=== PATIENT | male | born 1940 | race Caucasian/White ===

== ENCOUNTER 2017-05-25 17:23 | Emergency (ER) | payer MEDICARE, OTHER ==
[2017-05-25] MEDS ORDERED: Sodium Chloride 0.9% 1,000 ML IV ONE (17:54)
[2017-05-25] MEDS ORDERED: Sodium Chloride 0.9% 10 ML Syringe FLUSH PRN (17:54)
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
[2017-05-25] MEDS ORDERED: Ondansetron 4 MG/2 ML SDV IVPUSH ONE (18:33)
[2017-05-25] MEDS ORDERED: Morphine 10 MG/ML Syringe IVPUSH ONE (18:33)
[2017-05-25 18:55] LABS: CHLORIDE,CL 107 mmol/L (98-107); SODIUM,NA 143 mmol/L (136-145)
[2017-05-25] MEDS ORDERED: Silver Sulfadiazine 1% Crm 400 GM Jar TOP ONE (19:08)
[2017-05-25 20:42] VITALS: BP 158/88
== END 2017-05-25 19:55 | disposition home or self-care (01) ==
LOC: LL.ED 17:23
DX: T23.202A Burn of second degree of left hand, unspecified site, initial encounter (principal); T22.212A Burn of second degree of left forearm, initial encounter; T25.212A Burn of second degree of left ankle, initial encounter; T20.17XA Burn of first degree of neck, initial encounter; E78.00 Pure hypercholesterolemia, unspecified; I10 Essential (primary) hypertension; K21.9 Gastro-esophageal reflux disease without esophagitis; M19.90 Unspecified osteoarthritis, unspecified site; E11.9 Type 2 diabetes mellitus without complications; Z87.891 Personal history of nicotine dependence; Z87.442 Personal history of urinary calculi; Z79.899 Other long term (current) drug therapy; Z79.84 Long term (current) use of oral hypoglycemic drugs; Z79.82 Long term (current) use of aspirin; W40.1XXA Explosion of explosive gases, initial encounter; Y92.59 Other trade areas as the place of occurrence of the external cause
CPT/HCPCS: 16020; 36415; 80053; 85025; 96361; 96374; 96375; 99284; A9270; J2270; J2405; J7030; J7050

== ENCOUNTER 2017-05-27 10:55 | Emergency (ER) | payer MEDICARE, OTHER ==
[2017-05-27] MEDS ORDERED: Sodium Chloride 0.9% 10 ML Syringe FLUSH PRN (11:10)
[2017-05-27 11:37] LABS: CHLORIDE,CL 102 mmol/L (98-107); SODIUM,NA 138 mmol/L (136-145)
[2017-05-27] MEDS ORDERED: Ondansetron 4 MG/2 ML SDV IVPUSH ONE (12:43)
[2017-05-27] MEDS ORDERED: Morphine 10 MG/ML Syringe IVPUSH ONE (12:43)
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
[2017-05-27 20:27] VITALS: BP 130/76
== END 2017-05-27 14:50 ==
LOC: LL.ED 10:55
DX: T22.20XA Burn of second degree of shoulder and upper limb, except wrist and hand, unspecified site, initial encounter (principal); T23.202A Burn of second degree of left hand, unspecified site, initial encounter; T25.212A Burn of second degree of left ankle, initial encounter; T23.102A Burn of first degree of left hand, unspecified site, initial encounter; T25.112A Burn of first degree of left ankle, initial encounter; R53.1 Weakness; R41.0 Disorientation, unspecified; E78.00 Pure hypercholesterolemia, unspecified; I10 Essential (primary) hypertension; K21.9 Gastro-esophageal reflux disease without esophagitis; M19.90 Unspecified osteoarthritis, unspecified site; E11.9 Type 2 diabetes mellitus without complications; Z79.84 Long term (current) use of oral hypoglycemic drugs; Z79.899 Other long term (current) drug therapy; Z79.82 Long term (current) use of aspirin; Z87.442 Personal history of urinary calculi; Z87.891 Personal history of nicotine dependence; X03.0XXA Exposure to flames in controlled fire, not in building or structure, initial encounter; Y92.009 Unspecified place in unspecified non-institutional (private) residence as the place of occurrence of the external cause
CPT/HCPCS: 36415; 70450; 80053; 83605; 85025; 87040; 96374; 96375; 99285; J2270; J2405; J7050; 99284

== ENCOUNTER 2017-06-04 12:16 | Inpatient (IN) | payer OTHER, MEDICARE ==
[2017-06-04] MEDS ORDERED: Aluminum Hydroxide/Magnesium Hydroxide/Simethicone Susp 30 ML Cup PO PRN (16:42)
[2017-06-04] MEDS ORDERED: Cyclobenzaprine 10 MG Tab PO PRN (16:42)
[2017-06-04] MEDS ORDERED: traMADol 50 MG Tab PO PRN (16:42)
[2017-06-04] MEDS ORDERED: Albuterol/Ipratropium 3.0-0.5 MG/3 ML Neb Soln NEB PRN (16:55)
[2017-06-04] MEDS ORDERED: Albuterol 0.083% 2.5 MG/3 ML Neb Soln INH PRN (16:55)
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
[2017-06-04] MEDS: Magnesium Oxide 400 MG Tab PO SCH (17:54)
[2017-06-04] MEDS: Gabapentin 300 MG Cap PO SCH (17:54)
[2017-06-04] MEDS: metFORMIN 500 MG Tab PO SCH (17:54)
[2017-06-04] MEDS: Insulin Aspart 100 Units/ML 3 ML Pen SUBCUT SCH ×2 (17:54→20:44)
[2017-06-04] MEDS: atorvaSTATin 40 MG Tab PO SCH (20:46)
[2017-06-04] MEDS: amLODIPine 5 MG Tab PO SCH (20:46)
[2017-06-04] MEDS: Insulin Detemir 100 Units/ML 3 ML Pen SUBCUT SCH (20:47)
[2017-06-05] MEDS: Magnesium Oxide 400 MG Tab PO SCH ×2 (07:30→17:45)
[2017-06-05] MEDS: Glimepiride 2 MG Tab PO SCH (07:30)
[2017-06-05] MEDS: Gabapentin 300 MG Cap PO SCH ×2 (07:32→17:46)
[2017-06-05] MEDS: Lisinopril 5 MG Tab PO SCH (07:32)
[2017-06-05] MEDS: Citalopram 20 MG Tab PO SCH (07:32)
[2017-06-05] MEDS: Tamsulosin 0.4 MG Cap.ER PO SCH (07:35)
[2017-06-05] MEDS: metFORMIN 500 MG Tab PO SCH ×2 (07:36→17:46)
[2017-06-05] MEDS: Multivitamin Tab PO SCH (07:36)
[2017-06-05] MEDS: Cyanocobalamin (Vitamin B12) 1,000 MCG Tab PO SCH (07:36)
[2017-06-05] MEDS: Omeprazole 20 MG Cap.CR PO SCH (07:36)
[2017-06-05] MEDS: Finasteride 5 MG Tab PO SCH (07:36)
[2017-06-05] MEDS: Aspirin 81 MG Tab.Chew PO SCH (07:36)
[2017-06-05] MEDS: Insulin Aspart 100 Units/ML 3 ML Pen SUBCUT SCH ×4 (07:39→20:47)
[2017-06-05 08:20] LABS: CHLORIDE,CL 106 mmol/L (98-107); SODIUM,NA 141 mmol/L (136-145)
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
[2017-06-05] MEDS: Trospium 20 MG Tab PO SCH (17:46)
[2017-06-05] MEDS: atorvaSTATin 40 MG Tab PO SCH (20:42)
[2017-06-05] MEDS: amLODIPine 5 MG Tab PO SCH (20:42)
[2017-06-05] MEDS: Insulin Detemir 100 Units/ML 3 ML Pen SUBCUT SCH (20:43)
[2017-06-06] MEDS: Citalopram 20 MG Tab PO SCH (07:26)
[2017-06-06] MEDS: Glimepiride 2 MG Tab PO SCH (07:27)
[2017-06-06] MEDS: Magnesium Oxide 400 MG Tab PO SCH ×2 (07:27→17:10)
[2017-06-06] MEDS: Multivitamin Tab PO SCH (07:28)
[2017-06-06] MEDS: Finasteride 5 MG Tab PO SCH (07:28)
[2017-06-06] MEDS: Omeprazole 20 MG Cap.CR PO SCH (07:28)
[2017-06-06] MEDS: Gabapentin 300 MG Cap PO SCH ×2 (07:28→17:10)
[2017-06-06] MEDS: Tamsulosin 0.4 MG Cap.ER PO SCH (07:28)
[2017-06-06] MEDS: metFORMIN 500 MG Tab PO SCH ×2 (07:29→17:09)
[2017-06-06] MEDS: Lisinopril 5 MG Tab PO SCH (07:29)
[2017-06-06] MEDS: Aspirin 81 MG Tab.Chew PO SCH (07:29)
[2017-06-06] MEDS: Cyanocobalamin (Vitamin B12) 1,000 MCG Tab PO SCH (07:30)
[2017-06-06] MEDS: Insulin Aspart 100 Units/ML 3 ML Pen SUBCUT SCH ×4 (07:30→20:56)
[2017-06-06] MEDS: Trospium 20 MG Tab PO SCH ×2 (07:30→17:10)
[2017-06-06] MEDS: Insulin Detemir 100 Units/ML 3 ML Pen SUBCUT SCH (20:54)
[2017-06-06] MEDS: atorvaSTATin 40 MG Tab PO SCH (20:54)
[2017-06-06] MEDS: amLODIPine 5 MG Tab PO SCH (20:54)
[2017-06-07] MEDS: Gabapentin 300 MG Cap PO SCH ×2 (07:42→17:11)
[2017-06-07] MEDS: Omeprazole 20 MG Cap.CR PO SCH (07:42)
[2017-06-07] MEDS: Trospium 20 MG Tab PO SCH ×2 (07:43→17:11)
[2017-06-07] MEDS: Cyanocobalamin (Vitamin B12) 1,000 MCG Tab PO SCH (07:43)
[2017-06-07] MEDS: Multivitamin Tab PO SCH (07:43)
[2017-06-07] MEDS: Magnesium Oxide 400 MG Tab PO SCH ×2 (07:43→17:11)
[2017-06-07] MEDS: Aspirin 81 MG Tab.Chew PO SCH (07:44)
[2017-06-07] MEDS: Tamsulosin 0.4 MG Cap.ER PO SCH (07:45)
[2017-06-07] MEDS: Finasteride 5 MG Tab PO SCH (07:45)
[2017-06-07] MEDS: Lisinopril 5 MG Tab PO SCH (07:46)
[2017-06-07] MEDS: metFORMIN 500 MG Tab PO SCH ×2 (07:47→17:11)
[2017-06-07] MEDS: Citalopram 20 MG Tab PO SCH (07:48)
[2017-06-07] MEDS: Glimepiride 2 MG Tab PO SCH (07:50)
[2017-06-07] MEDS: Insulin Aspart 100 Units/ML 3 ML Pen SUBCUT SCH ×4 (07:51→20:58)
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
[2017-06-07] MEDS: Acetaminophen 325 MG Tab PO PRN (18:06)
[2017-06-07] MEDS: Insulin Detemir 100 Units/ML 3 ML Pen SUBCUT SCH (19:46)
[2017-06-07] MEDS: atorvaSTATin 40 MG Tab PO SCH (19:47)
[2017-06-07] MEDS: amLODIPine 5 MG Tab PO SCH (19:48)
[2017-06-08] MEDS: Trospium 20 MG Tab PO SCH ×2 (07:30→17:13)
[2017-06-08] MEDS: Finasteride 5 MG Tab PO SCH (07:30)
[2017-06-08] MEDS: Glimepiride 2 MG Tab PO SCH (07:30)
[2017-06-08] MEDS: metFORMIN 500 MG Tab PO SCH ×2 (07:30→17:13)
[2017-06-08] MEDS: Gabapentin 300 MG Cap PO SCH ×2 (07:30→17:13)
[2017-06-08] MEDS: Acetaminophen 325 MG Tab PO PRN ×2 (07:31→18:06)
[2017-06-08] MEDS: Cyanocobalamin (Vitamin B12) 1,000 MCG Tab PO SCH (07:32)
[2017-06-08] MEDS: Aspirin 81 MG Tab.Chew PO SCH (07:32)
[2017-06-08] MEDS: Citalopram 20 MG Tab PO SCH (07:32)
[2017-06-08] MEDS: Insulin Aspart 100 Units/ML 3 ML Pen SUBCUT SCH ×4 (07:33→21:18)
[2017-06-08] MEDS: Tamsulosin 0.4 MG Cap.ER PO SCH (07:33)
[2017-06-08] MEDS: Multivitamin Tab PO SCH (07:33)
[2017-06-08] MEDS: Magnesium Oxide 400 MG Tab PO SCH ×2 (07:33→17:13)
[2017-06-08] MEDS: Omeprazole 20 MG Cap.CR PO SCH (07:33)
[2017-06-08] MEDS: Lisinopril 5 MG Tab PO SCH (08:23)
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
[2017-06-08] MEDS: atorvaSTATin 40 MG Tab PO SCH (21:12)
[2017-06-08] MEDS: amLODIPine 5 MG Tab PO SCH (21:13)
[2017-06-08] MEDS: Insulin Detemir 100 Units/ML 3 ML Pen SUBCUT SCH (21:16)
[2017-06-09] MEDS: Insulin Aspart 100 Units/ML 3 ML Pen SUBCUT SCH ×4 (07:47→20:03)
[2017-06-09] MEDS: Aspirin 81 MG Tab.Chew PO SCH (08:04)
[2017-06-09] MEDS: Glimepiride 2 MG Tab PO SCH (08:04)
[2017-06-09] MEDS: Citalopram 20 MG Tab PO SCH (08:04)
[2017-06-09] MEDS: metFORMIN 500 MG Tab PO SCH ×2 (08:04→16:58)
[2017-06-09] MEDS: Tamsulosin 0.4 MG Cap.ER PO SCH (08:04)
[2017-06-09] MEDS: Gabapentin 300 MG Cap PO SCH ×3 (08:05→19:47)
[2017-06-09] MEDS: Finasteride 5 MG Tab PO SCH (08:05)
[2017-06-09] MEDS: Magnesium Oxide 400 MG Tab PO SCH ×2 (08:05→16:58)
[2017-06-09] MEDS: Multivitamin Tab PO SCH (08:05)
[2017-06-09] MEDS: Omeprazole 20 MG Cap.CR PO SCH (08:05)
[2017-06-09] MEDS: Trospium 20 MG Tab PO SCH ×3 (08:05→19:50)
[2017-06-09] MEDS: Lisinopril 5 MG Tab PO SCH (08:05)
[2017-06-09] MEDS: Cyanocobalamin (Vitamin B12) 1,000 MCG Tab PO SCH (08:05)
[2017-06-09 08:41] LABS: CHLORIDE,CL 102 mmol/L (98-107); SODIUM,NA 140 mmol/L (136-145)
[2017-06-09] MEDS: Ondansetron 4 MG Tab.DIS PO PRN ×2 (09:37→19:52)
[2017-06-09] MEDS ORDERED: Promethazine 25 MG Tab PO ONE (13:20)
[2017-06-09] MEDS ORDERED: Magnesium Citrate Solution 296 ML Bottle PO ONE (15:18)
[2017-06-09] MEDS ORDERED: Sodium Chloride 0.9% 10 ML Syringe FLUSH PRN (15:19)
[2017-06-09] MEDS ORDERED: Sodium Chloride 0.9% 500 ML IV ONE (15:20)
--- NOTE | 2017-06-09 15:25 | PCM.PN ---
- General Info Date of Service: 06/09/17 Admission Dx/Problem (Free Text): Admission Diagnosis/Problem Admission Diagnosis/Problem 1. Fatigue 2. Third-degree dempsey Functional Status: Reports: Pain Controlled, Tolerating Diet, Ambulating, Urinating, New Symptoms (nausea and emesis yesterday and today) - Review of Systems General: Denies: Fever, Weakness, Fatigue, Chills HEENT: Reports: No Symptoms Pulmonary: Reports: No Symptoms Cardiovascular: Reports: No Symptoms Gastrointestinal: Reports: Nausea, Vomiting. Denies: Abdominal Pain, Diarrhea, Melena Genitourinary: Reports: No Symptoms Musculoskeletal: Reports: No Symptoms Skin: Reports: No Symptoms Neurological: Reports: No Symptoms (no acute changes) Psychiatric: Reports: No Symptoms - Patient Data Vitals - Most Recent: Last Vital Signs Temp 36.8 C 06/09/17 11:25 Pulse 103 H 06/09/17 11:25 Resp 17 06/09/17 07:27 BP 164/109 H 06/09/17 11:25 Pulse Ox 94 L 06/09/17 11:25 Weight - Most Recent: 81.647 kg I&O - Last 24 Hours: Intake & Output 06/09/17 06/09/17 06/09/17 06:59 14:59 22:59 Output Total 200 300 Balance -200 -300 Lab Results Last 24 Hours: Laboratory Results - last 24 hr 06/08/17 06/08/17 06/09/17 Range/Units 16:59 21:15 08:15 WBC (4.0-10.2) K/uL RBC (4.33-5.41) M/uL Hgb (13.1-16.8) g/dL Hct (39.0-49.0) % MCV (84.0-98.0) fL MCH (28.2-33.3) pg MCHC (31.7-36.0) g/dL RDW (11.2-14.1) % Plt Count (150-350) K/uL Neut % (Auto) (45.0-80.0) % Lymph % (Auto) (10.0-50.0) % [place] % (Auto) (2.0-14.0) % Eos % (Auto) (0.0-5.0) % Baso % (Auto) (0.0-2.0) % Neut # (Auto) (1.40-7.00) K/uL Lymph # (Auto) (0.50-3.50) K/uL [place] # (Auto) (0.00-1.00) K/uL Eos # (Auto) (0.00-0.50) K/uL Baso # (Auto) (0.00-0.20) K/uL Sodium (136-145) mmol/L Potassium (3.5-5.1) mmol/L Chloride (98-107) mmol/L Carbon Dioxide (21.0-32.0) mmol/L BUN (7-18) mg/dL Creatinine (0.51-1.17) mg/dL Est Cr Clr Drug Dosing mL/min Estimated GFR (MDRD) mL/min Glucose (74-106) mg/dL POC Glucose 117 H 171 H (65-110) mg/dl Calcium (8.5-10.1) mg/dL Total Bilirubin (0.2-1.0) mg/dL AST (15-37) U/L ALT (12-78) U/L Alkaline Phosphatase (46-116) IU/L Total Protein (6.4-8.2) g/dL Albumin (3.4-5.0) g/dL Specimen Type Urinvoid Urine Color Yellow Urine Appearance Clear Urine pH 7.5 (5.0-9.0) Ur Specific [place] 1.015 (1.005-1.030) Urine Protein Negative (NEGATIVE) mg/dL Urine Glucose (UA) Negative (NEGATIVE) mg/dL Urine Ketones Negative (NEGATIVE) mg/dL Urine Occult Blood Negative (NEGATIVE) Urine Nitrite Negative (NEGATIVE) Urine Bilirubin Negative (NEGATIVE) Urine Urobilinogen 1.0 (0.2-1.0) E.U./dL Ur Leukocyte Esterase Negative (NEGATIVE) Urine RBC 0-5 /HPF Urine WBC 0-5 /HPF Ur Epithelial Cells Moderate H /LPF Urine Bacteria Few (NONE TO FEW) /HPF 06/09/17 06/09/17 Range/Units 08:20 08:20 WBC 11.7 H (4.0-10.2) K/uL RBC 4.51 (4.33-5.41) M/uL Hgb 11.9 L (13.1-16.8) g/dL Hct 36.9 L (39.0-49.0) % MCV 81.8 L (84.0-98.0) fL MCH 26.4 L (28.2-33.3) pg MCHC 32.2 (31.7-36.0) g/dL RDW 14.3 H (11.2-14.1) % Plt Count 446 H D (150-350) K/uL Neut % (Auto) 86.9 H (45.0-80.0) % Lymph % (Auto) 6.9 L (10.0-50.0) % [place] % (Auto) 5.0 (2.0-14.0) % Eos % (Auto) 0.9 (0.0-5.0) % Baso % (Auto) 0.3 (0.0-2.0) % Neut # (Auto) 10.15 H (1.40-7.00) K/uL Lymph # (Auto) 0.81 (0.50-3.50) K/uL [place] # (Auto) 0.58 (0.00-1.00) K/uL Eos # (Auto) 0.11 (0.00-0.50) K/uL Baso # (Auto) 0.03 (0.00-0.20) K/uL Sodium 140 (136-145) mmol/L Potassium 4.5 (3.5-5.1) mmol/L Chloride 102 (98-107) mmol/L Carbon Dioxide 30.1 (21.0-32.0) mmol/L BUN 10 (7-18) mg/dL Creatinine 0.77 (0.51-1.17) mg/dL Est Cr Clr Drug Dosing 87.12 mL/min Estimated GFR (MDRD) > 60 mL/min Glucose 157 H (74-106) mg/dL POC Glucose (65-110) mg/dl Calcium 9.1 (8.5-10.1) mg/dL Total Bilirubin 0.3 (0.2-1.0) mg/dL AST 21 (15-37) U/L ALT 35 (12-78) U/L Alkaline Phosphatase 109 (46-116) IU/L Total Protein 7.6 (6.4-8.2) g/dL Albumin 3.1 L (3.4-5.0) g/dL Specimen Type Urine Color Urine Appearance Urine pH (5.0-9.0) Ur Specific [place] (1.005-1.030) Urine Protein (NEGATIVE) mg/dL Urine Glucose (UA) (NEGATIVE) mg/dL Urine Ketones (NEGATIVE) mg/dL Urine Occult Blood (NEGATIVE) Urine Nitrite (NEGATIVE) Urine Bilirubin (NEGATIVE) Urine Urobilinogen (0.2-1.0) E.U./dL Ur Leukocyte Esterase (NEGATIVE) Urine RBC /HPF Urine WBC /HPF Ur Epithelial Cells /LPF Urine Bacteria (NONE TO FEW) /HPF Med Orders - Current: Current Medications Acetaminophen (Tylenol) 650 mg PO Q4H PRN PRN Reason: Pain Last Admin: 06/08/17 18:06 Dose: 650 mg Al Hydroxide/Mg Hydroxide (Mag-Al Plus) 30 ml PO Q4H PRN PRN Reason: Heartburn Albuterol (Proventil Neb Soln) 2.5 mg INH Q2H PRN PRN Reason: SHORTNESS OF BREATH Albuterol/Ipratropium (Duoneb 3.0-0.5 Mg/3 Ml) 3 ml NEB Q4HRRT PRN PRN Reason: Dyspnea Amlodipine Besylate (Norvasc) 5 mg PO BEDTIME [facility] Last Admin: 06/08/17 21:13 Dose: 5 mg Aspirin (Aspirin) 81 mg PO DAILY [facility] Last Admin: 06/09/17 08:04 Dose: Not Given Atorvastatin Calcium (Lipitor) 40 mg PO BEDTIME [facility] Last Admin: 06/08/17 21:12 Dose: 40 mg Citalopram Hydrobromide (Celexa) 10 mg PO DAILY [facility] Last Admin: 06/09/17 08:04 Dose: Not Given Cyanocobalamin (Vitamin B12) 1,000 mcg PO DAILY [facility] Last Admin: 06/09/17 08:05 Dose: Not Given Finasteride (Proscar) 5 mg PO DAILY [facility] Last Admin: 06/09/17 08:05 Dose: Not Given Gabapentin (Neurontin) 300 mg PO BID [facility] Last Admin: 06/09/17 08:05 Dose: Not Given Glimepiride (Amaryl) 1 mg PO DAILY [facility] Last Admin: 06/09/17 08:04 Dose: Not Given Sodium Chloride (Normal Saline) 500 mls @ 999 mls/hr IV .BOLUS ONE Stop: 06/09/17 15:50 Sodium Chloride (Normal Saline) 500 mls @ 100 mls/hr IV ASDIRECTED [facility] Insulin Aspart (Novolog) 0 unit SUBCUT ACBED [facility] PRN Reason: Protocol Last Admin: 06/09/17 11:17 Dose: Not Given Insulin Detemir (Levemir) 10 unit SUBCUT BEDTIME [facility] Last Admin: 06/08/17 21:16 Dose: 10 unit Lisinopril (Prinivil) 5 mg PO DAILY [facility] Last Admin: 06/09/17 08:05 Dose: Not Given Magnesium Citrate (Citrate Of Magnesia) 296 ml PO ONETIME ONE Stop: 06/09/17 15:19 Magnesium Oxide (Magnesium Oxide) 400 mg PO BIDMEALS [facility] Last Admin: 06/09/17 08:05 Dose: Not Given Metformin HCl (Glucophage) 1,000 mg PO BIDMEALS [facility] Last Admin: 06/09/17 08:04 Dose: Not Given Multivitamins/Minerals/Vitamin C (Tab-A-Dexter) 1 tab PO DAILY [facility] Last Admin: 06/09/17 08:05 Dose: Not Given Omeprazole (Omeprazole) 20 mg PO ACBRK [facility] Last Admin: 06/09/17 08:05 Dose: Not Given Ondansetron HCl (Zofran Odt) 4 mg PO Q6H PRN PRN Reason: Nausea/Vomiting Last Admin: 06/09/17 09:37 Dose: 4 mg Senna/Docusate Sodium (Senna Plus) 2 tab PO BID PRN PRN Reason: Constipation Last Admin: 06/08/17 07:32 Dose: 2 tab Sodium Chloride (Saline Flush) 10 ml FLUSH ASDIRECTED PRN PRN Reason: Keep Vein Open Tamsulosin HCl (Flomax) 0.4 mg PO DAILY [facility] Last Admin: 06/09/17 08:04 Dose: Not Given Temazepam (Restoril) 15 mg PO BEDTIME PRN PRN Reason: Insomnia Trospium (Sanctura) 20 mg PO BID [facility] Last Admin: 06/09/17 08:05 Dose: Not Given Discontinued Medications Cyclobenzaprine HCl (Flexeril) 10 mg PO TID PRN PRN Reason: back spasm Promethazine HCl (Phenergan) 25 mg PO ONETIME ONE Stop: 06/09/17 13:21 Last Admin: 06/09/17 13:38 Dose: 25 mg Tramadol HCl (Ultram) 50 mg PO Q6H PRN PRN Reason: Pain (moderate 4-6) - Exam General: Alert HEENT: Pupils Equal, Pupils Reactive, EOMI, Mucous Membr. Moist/[place] Neck: Supple Lungs: Clear to Auscultation, Normal Respiratory Effort Cardiovascular: Regular Rate, Regular Rhythm GI/Abdominal Exam: Soft, Non-Tender, No Distention, Other (decreased bowel sounds throughout) Back Exam: No: CVA Tenderness (L), CVA Tenderness (R) Extremities: Normal Inspection, Non-Tender, Normal Capillary Refill Peripheral Pulses: 2+: Radial (L), Radial (R) Skin: Warm, Dry, Intact Neurological: No New Focal Deficit - Problem List & Annotations (1) Right rib fracture SNOMED Code(s): 91724012 Code(s): S22.31XA - FRACTURE OF ONE RIB, RIGHT SIDE, INIT FOR CLOS FX Status: Acute Priority: Low Current Visit: Yes (2) Hypertension SNOMED Code(s): 67787265 Code(s): I10 - ESSENTIAL (PRIMARY) HYPERTENSION Status: Chronic Priority : Medium Current Visit: No Qualifiers: Hypertension type: essential hypertension Qualified Code(s): I10 - Essential (primary) hypertension Annotation/Comment:: Stable by history (3) Dempsey of multiple specified sites Status: Acute Priority: High Current Visit: Yes (4) Generalized weakness SNOMED Code(s): 55834717 Code(s): R53.1 - WEAKNESS Status: Acute Priority: High Current Visit: Yes Onset Date: ~05/25/17 Annotation/Comment:: Initiate PT and OT (5) Confusion SNOMED Code(s): 839837579 Code(s): R41.0 - DISORIENTATION, UNSPECIFIED Status: Chronic Priority: High Current Visit: No Annotation/Comment:: Continued moderate confusion today. Neurological checks with vitals. Note recent normal CT scan of the head and neurological consultation at [facility] as above. Discontinue Ultram and Flexeril secondary to his confusion with no significant pain at this time. UA with culture and sensitivity also to be collected. (6) IDDM (insulin dependent diabetes mellitus) SNOMED Code(s): 89968871 Code(s): E11.9 - TYPE 2 DIABETES MELLITUS WITHOUT COMPLICATIONS; Z79.4 - FDC (CURRENT) USE OF INSULIN Status: Chronic Priority: Medium Current Visit: Yes Annotation/Comment:: Glycosylated hemoglobin in the a.m. Initiate 4 times a day Accu-Cheks with sliding scale for now (7) Dyslipidemia SNOMED Code(s): 114558314 Code(s): E78.5 - HYPERLIPIDEMIA, UNSPECIFIED Status: Chronic Priority: Medium Current Visit: Yes Annotation/Comment:: Stable by history, currently under therapy (8) Coronary artery disease SNOMED Code(s): 27834283 Code(s): I25.10 - ATHSCL HEART DISEASE OF [place] CORONARY ARTERY W/O ANG PCTRS Status: Chronic Priority: Medium Current Visit: Yes Qualifiers: Coronary Disease-Associated Artery/Lesion type: [place] artery [place] vs. transplanted heart: [place] heart Associated angina: without angina Qualified Code(s): I25.10 - Atherosclerotic heart disease of [place] coronary artery without angina pectoris Annotation/Comment:: No recent chest pain or anginal type symptoms with previous history of cardiac arrhythmia and mild valvular disease as above (9) Anxiety and depression SNOMED Code(s): 785293457 Code(s): F41.8 - OTHER SPECIFIED ANXIETY DISORDERS Status: Chronic Priority: Medium Current Visit: Yes Annotation/Comment:: Not currently under therapy. Attempt low-dose Celexa with patient somewhat anxious and depressed today needing some one-on-one care secondary to his confusion as above. Care coordination consultation with possible future fci placement (10) Contusion of chest wall with intact skin SNOMED Code(s): 58798380, 496405460 Code(s): S20.219A - CONTUSION OF UNSPECIFIED FRONT WALL OF [place]OR[place], INIT ENCNTR Status: Acute Priority: Medium Current Visit: Yes Onset Date: ~ (11) Nausea & vomiting SNOMED Code(s): 00943419 Code(s): R11.2 - NAUSEA WITH VOMITING, UNSPECIFIED Status: Acute Priority : Medium Current Visit: Yes Onset Date: 06/08/17 Qualifiers: Vomiting type: unspecified Vomiting Intractability: non-intractable Qualified Code(s): R11.2 - Nausea with vomiting, unspecified Annotation/Comment:: Patient has had several episodes of emesis/nausea yesterday and today. No other specific accompanying symptoms. Mild elevation of WBC today. Noted on Xray to have rather large amounts of stool. Hematocrit also elevated today which reflects probably mild dehydration. Will treat for constipation and given small amount IV fluids and see if this helps resolve the emesis. - Problem List Review Problem List Initiated/Reviewed/Updated: Yes - My Orders Last 24 Hours: My Active Orders 06/09/17 08:16 Ondansetron [Zofran ODT] 4 mg PO Q6H PRN 06/09/17 12:03 Abdomen 2V AP Flat Upright [CR] Routine 06/09/17 15:18 Magnesium Citrate [Citrate of Magnesia] 296 ml PO ONETIME ONE 06/09/17 15:19 Sodium Chloride 0.9% [Saline Flush] 10 ml FLUSH ASDIRECTED PRN Saline Lock Insert [OM.PC] Routine 06/09/17 15:20 Sodium Chloride 0.9% [Normal Saline] 500 ml IV .BOLUS 06/09/17 15:30 Sodium Chloride 0.9% @ 100 MLS/HR(500ml) Sodium Chloride 0.9% [Normal Saline] 500 ml IV ASDIRECTED - Assessment Assessment:: As above - Plan Plan:: As above.
[2017-06-09] MEDS: Sodium Chloride 0.9% 500 ML IV SCH ×2 (15:44→16:43)
[2017-06-09] MEDS ORDERED: Menthol/Methyl Salicylate 85 GM Tube TOP PRN (19:44)
[2017-06-09] MEDS: atorvaSTATin 40 MG Tab PO SCH (19:44)
[2017-06-09] MEDS: Insulin Detemir 100 Units/ML 3 ML Pen SUBCUT SCH (19:45)
[2017-06-09] MEDS: amLODIPine 5 MG Tab PO SCH (19:49)
[2017-06-09] MEDS: Acetaminophen 325 MG Tab PO PRN (19:50)
[2017-06-10] MEDS: Magnesium Oxide 400 MG Tab PO SCH ×2 (07:45→17:08)
[2017-06-10] MEDS: metFORMIN 500 MG Tab PO SCH ×2 (07:45→17:08)
[2017-06-10] MEDS: Omeprazole 20 MG Cap.CR PO SCH (07:46)
[2017-06-10] MEDS: Insulin Aspart 100 Units/ML 3 ML Pen SUBCUT SCH ×4 (07:46→20:01)
[2017-06-10] MEDS: Citalopram 20 MG Tab PO SCH (07:47)
[2017-06-10] MEDS: Glimepiride 2 MG Tab PO SCH (07:47)
[2017-06-10] MEDS: Aspirin 81 MG Tab.Chew PO SCH (07:47)
[2017-06-10] MEDS: Tamsulosin 0.4 MG Cap.ER PO SCH (07:48)
[2017-06-10] MEDS: Gabapentin 300 MG Cap PO SCH ×2 (07:48→17:09)
[2017-06-10] MEDS: Trospium 20 MG Tab PO SCH ×2 (07:49→17:09)
[2017-06-10] MEDS: Finasteride 5 MG Tab PO SCH (07:49)
[2017-06-10] MEDS: Lisinopril 5 MG Tab PO SCH (07:49)
[2017-06-10] MEDS: Cyanocobalamin (Vitamin B12) 1,000 MCG Tab PO SCH (07:49)
[2017-06-10] MEDS: Multivitamin Tab PO SCH (07:50)
[2017-06-10] MEDS ORDERED: Polyethylene Glycol 3350 Powder 17 GM Packet PO ONE (09:39)
[2017-06-10] MEDS ORDERED: Magnesium Citrate Solution 296 ML Bottle PO ONE (09:40)
[2017-06-10] MEDS ORDERED: Sodium Chloride 0.9% 1,000 ML IV SCH (09:42)
[2017-06-10] MEDS: Sodium Chloride 0.9% 1,000 ML IV SCH ×2 (10:38→20:35)
[2017-06-10] MEDS: Insulin Detemir 100 Units/ML 3 ML Pen SUBCUT SCH (19:51)
[2017-06-10] MEDS: atorvaSTATin 40 MG Tab PO SCH (19:53)
[2017-06-10] MEDS: amLODIPine 5 MG Tab PO SCH (19:53)
[2017-06-11] MEDS: Sodium Chloride 0.9% 1,000 ML IV SCH (07:25)
[2017-06-11] MEDS: metFORMIN 500 MG Tab PO SCH ×2 (07:52→18:16)
[2017-06-11] MEDS: Omeprazole 20 MG Cap.CR PO SCH (07:52)
[2017-06-11] MEDS: Magnesium Oxide 400 MG Tab PO SCH ×2 (07:52→18:16)
[2017-06-11] MEDS: Finasteride 5 MG Tab PO SCH (07:52)
[2017-06-11] MEDS: Glimepiride 2 MG Tab PO SCH (07:53)
[2017-06-11] MEDS: Trospium 20 MG Tab PO SCH ×2 (07:54→18:15)
[2017-06-11] MEDS: Multivitamin Tab PO SCH (07:54)
[2017-06-11] MEDS: Cyanocobalamin (Vitamin B12) 1,000 MCG Tab PO SCH (07:54)
[2017-06-11] MEDS: Citalopram 20 MG Tab PO SCH (07:54)
[2017-06-11] MEDS: Lisinopril 5 MG Tab PO SCH (07:55)
[2017-06-11] MEDS: Tamsulosin 0.4 MG Cap.ER PO SCH (07:56)
[2017-06-11] MEDS: Aspirin 81 MG Tab.Chew PO SCH (07:56)
[2017-06-11] MEDS: Gabapentin 300 MG Cap PO SCH ×2 (07:56→18:15)
[2017-06-11] MEDS: Insulin Aspart 100 Units/ML 3 ML Pen SUBCUT SCH ×4 (07:57→20:38)
[2017-06-11 08:09] LABS: CHLORIDE,CL 109 mmol/L (98-107); SODIUM,NA 144 mmol/L (136-145)
[2017-06-11] MEDS: amLODIPine 5 MG Tab PO SCH (19:17)
[2017-06-11] MEDS: atorvaSTATin 40 MG Tab PO SCH (19:17)
[2017-06-11] MEDS: Insulin Detemir 100 Units/ML 3 ML Pen SUBCUT SCH (19:18)
[2017-06-12] MEDS: Temazepam 15 MG Cap PO PRN ×2 (04:41→21:39)
[2017-06-12] MEDS: Acetaminophen 325 MG Tab PO PRN ×2 (04:41→21:39)
[2017-06-12] MEDS: Insulin Aspart 100 Units/ML 3 ML Pen SUBCUT SCH ×4 (07:12→20:13)
[2017-06-12] MEDS: Finasteride 5 MG Tab PO SCH (07:50)
[2017-06-12] MEDS: metFORMIN 500 MG Tab PO SCH ×2 (07:50→17:02)
[2017-06-12] MEDS: Magnesium Oxide 400 MG Tab PO SCH ×2 (07:50→17:02)
[2017-06-12] MEDS: Omeprazole 20 MG Cap.CR PO SCH (07:50)
[2017-06-12] MEDS: Tamsulosin 0.4 MG Cap.ER PO SCH (07:51)
[2017-06-12] MEDS: Glimepiride 2 MG Tab PO SCH (07:51)
[2017-06-12] MEDS: Trospium 20 MG Tab PO SCH ×2 (07:51→17:01)
[2017-06-12] MEDS: Citalopram 20 MG Tab PO SCH (07:52)
[2017-06-12] MEDS: Gabapentin 300 MG Cap PO SCH ×2 (07:52→17:01)
[2017-06-12] MEDS: Cyanocobalamin (Vitamin B12) 1,000 MCG Tab PO SCH (07:53)
[2017-06-12] MEDS: Aspirin 81 MG Tab.Chew PO SCH (07:53)
[2017-06-12] MEDS: Multivitamin Tab PO SCH (07:53)
[2017-06-12] MEDS: Lisinopril 5 MG Tab PO SCH (07:53)
[2017-06-12] MEDS: Insulin Detemir 100 Units/ML 3 ML Pen SUBCUT SCH (19:33)
[2017-06-12] MEDS: atorvaSTATin 40 MG Tab PO SCH (19:34)
[2017-06-12] MEDS: amLODIPine 5 MG Tab PO SCH (19:38)
[2017-06-13] MEDS: Acetaminophen 325 MG Tab PO PRN ×2 (04:37→19:41)
[2017-06-13] MEDS: Aspirin 81 MG Tab.Chew PO SCH (08:33)
[2017-06-13] MEDS: Trospium 20 MG Tab PO SCH ×2 (08:33→17:12)
[2017-06-13] MEDS: metFORMIN 500 MG Tab PO SCH ×2 (08:33→17:13)
[2017-06-13] MEDS: Finasteride 5 MG Tab PO SCH (08:33)
[2017-06-13] MEDS: Glimepiride 2 MG Tab PO SCH (08:33)
[2017-06-13] MEDS: Omeprazole 20 MG Cap.CR PO SCH (08:33)
[2017-06-13] MEDS: Tamsulosin 0.4 MG Cap.ER PO SCH (08:33)
[2017-06-13] MEDS: Gabapentin 300 MG Cap PO SCH ×2 (08:34→17:14)
[2017-06-13] MEDS: Cyanocobalamin (Vitamin B12) 1,000 MCG Tab PO SCH (08:34)
[2017-06-13] MEDS: Citalopram 20 MG Tab PO SCH (08:34)
[2017-06-13] MEDS: Lisinopril 5 MG Tab PO SCH (08:34)
[2017-06-13] MEDS: Multivitamin Tab PO SCH (08:34)
[2017-06-13] MEDS: Magnesium Oxide 400 MG Tab PO SCH ×2 (08:34→17:14)
[2017-06-13] MEDS: Insulin Aspart 100 Units/ML 3 ML Pen SUBCUT SCH ×4 (08:35→20:22)
[2017-06-13] MEDS: atorvaSTATin 40 MG Tab PO SCH (19:40)
[2017-06-13] MEDS: Insulin Detemir 100 Units/ML 3 ML Pen SUBCUT SCH (19:40)
[2017-06-13] MEDS: amLODIPine 5 MG Tab PO SCH (19:41)
[2017-06-13] MEDS: Temazepam 15 MG Cap PO PRN (19:42)
[2017-06-14] MEDS: metFORMIN 500 MG Tab PO SCH ×2 (08:43→17:43)
[2017-06-14] MEDS: Omeprazole 20 MG Cap.CR PO SCH (08:44)
[2017-06-14] MEDS: Magnesium Oxide 400 MG Tab PO SCH ×2 (08:44→17:44)
[2017-06-14] MEDS: Glimepiride 2 MG Tab PO SCH (08:46)
[2017-06-14] MEDS: Aspirin 81 MG Tab.Chew PO SCH (08:48)
[2017-06-14] MEDS: Tamsulosin 0.4 MG Cap.ER PO SCH (08:49)
[2017-06-14] MEDS: Lisinopril 5 MG Tab PO SCH (08:50)
[2017-06-14] MEDS: Gabapentin 300 MG Cap PO SCH ×2 (08:50→17:45)
[2017-06-14] MEDS: Trospium 20 MG Tab PO SCH ×2 (08:52→17:45)
[2017-06-14] MEDS: Finasteride 5 MG Tab PO SCH (08:52)
[2017-06-14] MEDS: Cyanocobalamin (Vitamin B12) 1,000 MCG Tab PO SCH (08:53)
[2017-06-14] MEDS: Multivitamin Tab PO SCH (08:53)
[2017-06-14] MEDS: Citalopram 20 MG Tab PO SCH (08:56)
[2017-06-14] MEDS: Insulin Aspart 100 Units/ML 3 ML Pen SUBCUT SCH ×4 (09:02→20:08)
[2017-06-14] MEDS: Insulin Detemir 100 Units/ML 3 ML Pen SUBCUT SCH (20:08)
[2017-06-14] MEDS: atorvaSTATin 40 MG Tab PO SCH (20:09)
[2017-06-14] MEDS: Acetaminophen 325 MG Tab PO PRN (20:09)
[2017-06-14] MEDS: Temazepam 15 MG Cap PO PRN (20:09)
[2017-06-14] MEDS: amLODIPine 5 MG Tab PO SCH (20:10)
[2017-06-15] MEDS: Insulin Aspart 100 Units/ML 3 ML Pen SUBCUT SCH ×4 (07:48→19:59)
[2017-06-15] MEDS: metFORMIN 500 MG Tab PO SCH ×2 (07:49→17:25)
[2017-06-15] MEDS: Magnesium Oxide 400 MG Tab PO SCH ×2 (07:49→17:25)
[2017-06-15] MEDS: Trospium 20 MG Tab PO SCH ×2 (07:50→17:25)
[2017-06-15] MEDS: Lisinopril 5 MG Tab PO SCH (07:50)
[2017-06-15] MEDS: Aspirin 81 MG Tab.Chew PO SCH (07:50)
[2017-06-15] MEDS: Citalopram 20 MG Tab PO SCH (07:50)
[2017-06-15] MEDS: Omeprazole 20 MG Cap.CR PO SCH (07:50)
[2017-06-15] MEDS: Tamsulosin 0.4 MG Cap.ER PO SCH (07:51)
[2017-06-15] MEDS: Multivitamin Tab PO SCH (07:51)
[2017-06-15] MEDS: Finasteride 5 MG Tab PO SCH (07:52)
[2017-06-15] MEDS: Glimepiride 2 MG Tab PO SCH (07:52)
[2017-06-15] MEDS: Cyanocobalamin (Vitamin B12) 1,000 MCG Tab PO SCH (07:52)
[2017-06-15] MEDS: Gabapentin 300 MG Cap PO SCH ×2 (07:53→17:25)
[2017-06-15] MEDS: Insulin Detemir 100 Units/ML 3 ML Pen SUBCUT SCH (19:57)
[2017-06-15] MEDS: atorvaSTATin 40 MG Tab PO SCH (19:58)
[2017-06-15] MEDS: Temazepam 15 MG Cap PO PRN (19:58)
[2017-06-15] MEDS: amLODIPine 5 MG Tab PO SCH (19:58)
[2017-06-15] MEDS: Acetaminophen 325 MG Tab PO PRN (19:59)
[2017-06-16] MEDS: Multivitamin Tab PO SCH (07:48)
[2017-06-16] MEDS: Insulin Aspart 100 Units/ML 3 ML Pen SUBCUT SCH ×4 (07:48→21:36)
[2017-06-16] MEDS: metFORMIN 500 MG Tab PO SCH ×2 (07:49→17:06)
[2017-06-16] MEDS: Citalopram 20 MG Tab PO SCH (07:49)
[2017-06-16] MEDS: Finasteride 5 MG Tab PO SCH (07:50)
[2017-06-16] MEDS: Gabapentin 300 MG Cap PO SCH ×2 (07:50→17:06)
[2017-06-16] MEDS: Omeprazole 20 MG Cap.CR PO SCH (07:50)
[2017-06-16] MEDS: Trospium 20 MG Tab PO SCH ×2 (07:50→17:06)
[2017-06-16] MEDS: Aspirin 81 MG Tab.Chew PO SCH (07:50)
[2017-06-16] MEDS: Magnesium Oxide 400 MG Tab PO SCH ×2 (07:50→17:06)
[2017-06-16] MEDS: Cyanocobalamin (Vitamin B12) 1,000 MCG Tab PO SCH (07:51)
[2017-06-16] MEDS: Glimepiride 2 MG Tab PO SCH (07:51)
[2017-06-16] MEDS: Lisinopril 5 MG Tab PO SCH (07:51)
[2017-06-16] MEDS: Tamsulosin 0.4 MG Cap.ER PO SCH (07:51)
[2017-06-16] MEDS: Insulin Detemir 100 Units/ML 3 ML Pen SUBCUT SCH (21:34)
[2017-06-16] MEDS: amLODIPine 5 MG Tab PO SCH (21:35)
[2017-06-16] MEDS: atorvaSTATin 40 MG Tab PO SCH (21:35)
[2017-06-16] MEDS: Acetaminophen 325 MG Tab PO PRN (21:36)
[2017-06-16] MEDS: Temazepam 15 MG Cap PO PRN (21:37)
[2017-06-17] MEDS: Cyanocobalamin (Vitamin B12) 1,000 MCG Tab PO SCH (07:52)
[2017-06-17] MEDS: Finasteride 5 MG Tab PO SCH (07:52)
[2017-06-17] MEDS: Insulin Aspart 100 Units/ML 3 ML Pen SUBCUT SCH ×4 (07:52→21:15)
[2017-06-17] MEDS: metFORMIN 500 MG Tab PO SCH ×2 (07:52→17:13)
[2017-06-17] MEDS: Acetaminophen 325 MG Tab PO PRN ×2 (07:53→21:14)
[2017-06-17] MEDS: Lisinopril 5 MG Tab PO SCH (07:53)
[2017-06-17] MEDS: Magnesium Oxide 400 MG Tab PO SCH ×2 (07:54→17:14)
[2017-06-17] MEDS: Trospium 20 MG Tab PO SCH ×2 (07:54→17:14)
[2017-06-17] MEDS: Glimepiride 2 MG Tab PO SCH (07:54)
[2017-06-17] MEDS: Multivitamin Tab PO SCH (07:54)
[2017-06-17] MEDS: Aspirin 81 MG Tab.Chew PO SCH (07:54)
[2017-06-17] MEDS: Omeprazole 20 MG Cap.CR PO SCH (07:54)
[2017-06-17] MEDS: Citalopram 20 MG Tab PO SCH (07:54)
[2017-06-17] MEDS: Tamsulosin 0.4 MG Cap.ER PO SCH (07:54)
[2017-06-17] MEDS: Gabapentin 300 MG Cap PO SCH ×2 (07:54→17:13)
[2017-06-17] MEDS ORDERED: Hydrocortisone 1% Crm 1.5 GM Packet TOP PRN (14:40)
[2017-06-17] MEDS: Insulin Detemir 100 Units/ML 3 ML Pen SUBCUT SCH (21:13)
[2017-06-17] MEDS: Temazepam 15 MG Cap PO PRN (21:14)
[2017-06-17] MEDS: atorvaSTATin 40 MG Tab PO SCH (21:14)
[2017-06-17] MEDS: amLODIPine 5 MG Tab PO SCH (21:14)
[2017-06-18] MEDS: Insulin Aspart 100 Units/ML 3 ML Pen SUBCUT SCH ×2 (07:23→11:06)
[2017-06-18] MEDS: Magnesium Oxide 400 MG Tab PO SCH (07:24)
[2017-06-18] MEDS: Glimepiride 2 MG Tab PO SCH (07:24)
[2017-06-18] MEDS: metFORMIN 500 MG Tab PO SCH (07:25)
[2017-06-18] MEDS: Cyanocobalamin (Vitamin B12) 1,000 MCG Tab PO SCH (07:25)
[2017-06-18] MEDS: Trospium 20 MG Tab PO SCH (07:25)
[2017-06-18] MEDS: Citalopram 20 MG Tab PO SCH (07:25)
[2017-06-18] MEDS: Multivitamin Tab PO SCH (07:26)
[2017-06-18] MEDS: Finasteride 5 MG Tab PO SCH (07:26)
[2017-06-18] MEDS: Omeprazole 20 MG Cap.CR PO SCH (07:26)
[2017-06-18] MEDS: Lisinopril 5 MG Tab PO SCH (07:26)
[2017-06-18] MEDS: Tamsulosin 0.4 MG Cap.ER PO SCH (07:26)
[2017-06-18] MEDS: Aspirin 81 MG Tab.Chew PO SCH (07:27)
[2017-06-18] MEDS: Gabapentin 300 MG Cap PO SCH (07:27)
[2017-06-18 07:28] VITALS: BP 104/68
--- NOTE | 2017-06-19 11:00 | PCM.DCSUM1 ---
Discharge Summary - Hospital Course Free Text/Narrative:: Janki is a 76-year-old gentleman who was admitted with dempsey to the left forearm and hand and left foot at this time the dempsey have been healing nicely and the patient has been getting physical therapy and occupational therapy and has improved to the point where we could discharge him home - Discharge Data Discharge Date: 06/18/17 Discharge Disposition: Home, Self-Care 01 Condition: Good - Discharge Diagnosis/Problem(s) (1) Dempsey of multiple specified sites Status: Acute Priority: High (2) Generalized weakness SNOMED Code(s): 06209670 ICD Code: R53.1 - WEAKNESS Status: Acute Priority: High Onset Date: ~ Problem Details: Initiate PT and OT - Patient Summary/Data Consults: Consultations 06/04/17 16:51 OT Evaluation and Treatment [CONS] Routine PT Evaluation and Treatment [CONS] Routine 06/05/17 05:11 Consult to Case Management [CONS] Routine - Patient Instructions Diet: Heart Healthy Diet Activity: As Tolerated Driving: May Drive Today Showering/Bathing: March Shower Wound/Incision Care: Change Dressing Daily Notify Provider of: Fever, Increased Pain - Discharge Plan Prescriptions/Med Rec: Citalopram [Celexa] 10 mg PO DAILY #30 tablet Home Medications: Home Meds Cyanocobalamin (Vitamin B-12) [Vitamin B-12] 1,000 mcg PO DAILY 07/23/15 [ History] Cyclobenzaprine [Flexeril] 10 mg PO TID PRN 07/23/15 [History] Finasteride [Proscar] 5 mg PO DAILY 07/23/15 [History] Gabapentin [Neurontin] 300 mg PO BID 07/23/15 [History] Lisinopril [Prinivil] 5 mg PO DAILY 07/23/15 [History] Multivitamin [Multi-Day Vitamins] 1 tab PO DAILY 07/23/15 [History] Omeprazole 20 mg PO DAILY 07/23/15 [History] SitaGLIPtin [Januvia] 100 mg PO DAILY 07/23/15 [History] Solifenacin [Vesicare] 5 mg PO DAILY 07/23/15 [History] Tamsulosin [Flomax] 0.4 mg PO DAILY 07/23/15 [History] amLODIPine [Norvasc] 5 mg PO BEDTIME 07/23/15 [History] atorvaSTATin [Lipitor] 40 mg PO BEDTIME 07/23/15 [History] metFORMIN [Glucophage] 1,000 mg PO BIDMEALS 07/23/15 [History] Aspirin [Kimberly Chewable Aspirin] 81 mg PO DAILY 05/25/17 [History] Acetaminophen 650 mg PO Q4H PRN 06/04/17 [History] Alum Hydrox/Mag Hydrox/Simeth [Mag-Al Plus] 30 ml PO Q4H PRN 06/04/17 [History] Docusate Sodium/Sennosides [Senna Plus] 2 tab PO BID PRN 06/04/17 [History] Glimepiride 1 mg PO DAILY 06/04/17 [History] Insulin Detemir [Levemir] 10 units SUBCUT BEDTIME 06/04/17 [History] Magnesium Oxide 400 mg PO BIDMEALS 06/04/17 [History] Acetaminophen [Tylenol] 650 mg PO Q6H PRN #100 tablet 06/18/17 [Rx] Citalopram [Celexa] 10 mg PO DAILY #30 tablet 06/18/17 [Rx] Referrals: Ambar Larry NP [Primary Care Provider] - Vikash Ceballos MD [Family Provider] - - General Info Functional Status: Reports: Tolerating Diet, Ambulating - Review of Systems General: Reports: No Symptoms HEENT: Reports: No Symptoms Pulmonary: Reports: No Symptoms Cardiovascular: Reports: No Symptoms Gastrointestinal: Reports: No Symptoms Genitourinary: Reports: No Symptoms Musculoskeletal: Reports: No Symptoms Skin: Reports: Other (Second-degree dempsey to left hand and left foot healing nicely) Neurological: Reports: No Symptoms Psychiatric: Reports: No Symptoms - Patient Data Vitals - Most Recent: Last Vital Signs Temp 97.7 F 06/18/17 08:00 Pulse 91 06/18/17 08:00 Resp 16 06/18/17 08:00 BP 104/68 06/18/17 08:00 Pulse Ox 91 L 06/18/17 08:00 Weight - Most Recent: 178 lb 12.8 oz Lab Results - Last 24 hrs: Laboratory Results - last 24 hr 06/18/17 Range/Units 11:05 POC Glucose 122 H (65-110) mg/dl Med Orders - Current: Current Medications Discontinued Medications Acetaminophen (Tylenol) 650 mg PO Q4H PRN PRN Reason: Pain Last Admin: 06/17/17 21:14 Dose: 650 mg Al Hydroxide/Mg Hydroxide (Mag-Al Plus) 30 ml PO Q4H PRN PRN Reason: Heartburn Albuterol (Proventil Neb Soln) 2.5 mg INH Q2H PRN PRN Reason: SHORTNESS OF BREATH Albuterol/Ipratropium (Duoneb 3.0-0.5 Mg/3 Ml) 3 ml NEB Q4HRRT PRN PRN Reason: Dyspnea Amlodipine Besylate (Norvasc) 5 mg PO BEDTIME [facility] Last Admin: 06/17/17 21:14 Dose: 5 mg Aspirin (Aspirin) 81 mg PO DAILY [facility] Last Admin: 06/18/17 07:27 Dose: 81 mg Atorvastatin Calcium (Lipitor) 40 mg PO BEDTIME [facility] Last Admin: 06/17/17 21:14 Dose: 40 mg Citalopram Hydrobromide (Celexa) 10 mg PO DAILY [facility] Last Admin: 06/18/17 07:25 Dose: 10 mg Cyanocobalamin (Vitamin B12) 1,000 mcg PO DAILY [facility] Last Admin: 06/18/17 07:25 Dose: 1,000 mcg Cyclobenzaprine HCl (Flexeril) 10 mg PO TID PRN PRN Reason: back spasm Finasteride (Proscar) 5 mg PO DAILY [facility] Last Admin: 06/18/17 07:26 Dose: 5 mg Gabapentin (Neurontin) 300 mg PO BID [facility] Last Admin: 06/18/17 07:27 Dose: 300 mg Glimepiride (Amaryl) 1 mg PO DAILY [facility] Last Admin: 06/18/17 07:24 Dose: 1 mg Hydrocortisone (Hydrocortisone 1% Crm) 1.5 gm TOP BID PRN PRN Reason: Itching Stop: 06/20/17 14:41 Last Admin: 06/17/17 14:54 Dose: 1.5 gm Sodium Chloride (Normal Saline) 500 mls @ 999 mls/hr IV .BOLUS ONE Stop: 06/09/17 15:50 Last Admin: 06/09/17 16:13 Dose: 999 mls/hr Sodium Chloride (Normal Saline) 500 mls @ 100 mls/hr IV ASDIRECTED [facility] Last Admin: 06/09/17 16:43 Dose: 100 mls/hr Sodium Chloride (Normal Saline) 1,000 mls @ 100 mls/hr IV ASDIRECTED [facility] Sodium Chloride (Normal Saline) 1,000 mls @ 100 mls/hr IV ASDIRECTED [facility] Last Admin: 06/11/17 07:25 Dose: 100 mls/hr Insulin Aspart (Novolog) 0 unit SUBCUT ACBED [facility] PRN Reason: Protocol Last Admin: 06/18/17 11:06 Dose: Not Given Insulin Detemir (Levemir) 10 unit SUBCUT BEDTIME [facility] Last Admin: 06/17/17 21:13 Dose: 10 unit Lisinopril (Prinivil) 5 mg PO DAILY [facility] Last Admin: 06/18/17 07:26 Dose: 5 mg Magnesium Citrate (Citrate Of Magnesia) 296 ml PO ONETIME ONE Stop: 06/09/17 15:19 Last Admin: 06/09/17 15:27 Dose: 296 ml Magnesium Citrate (Citrate Of Magnesia) 296 ml PO ONETIME ONE Stop: 06/10/17 09:41 Last Admin: 06/10/17 10:20 Dose: 296 ml Magnesium Oxide (Magnesium Oxide) 400 mg PO BIDMEALS [facility] Last Admin: 06/18/17 07:24 Dose: 400 mg Metformin HCl (Glucophage) 1,000 mg PO BIDMEALS [facility] Last Admin: 06/18/17 07:25 Dose: 1,000 mg Methyl Salicylate (Icy Hot Cream) 0 gm TOP QID PRN PRN Reason: Pain Multivitamins/Minerals/Vitamin C (Tab-A-Dexter) 1 tab PO DAILY [facility] Last Admin: 06/18/17 07:26 Dose: 1 tab [facility]) [facility] Last Admin: 06/18/17 07:26 Dose: 20 mg Ondansetron HCl (Zofran Odt) 4 mg PO Q6H PRN PRN Reason: Nausea/Vomiting Last Admin: 06/09/17 19:52 Dose: 4 mg Polyethylene Glycol (Miralax) 17 gm PO ONETIME ONE Stop: 06/10/17 09:40 Last Admin: 06/10/17 10:20 Dose: 17 gm Promethazine HCl (Phenergan) 25 mg PO ONETIME ONE Stop: 06/09/17 13:21 Last Admin: 06/09/17 13:38 Dose: 25 mg Senna/Docusate Sodium (Senna Plus) 2 tab PO BID PRN PRN Reason: Constipation Last Admin: 06/09/17 19:54 Dose: 2 tab Sodium Chloride (Saline Flush) 10 ml FLUSH ASDIRECTED PRN PRN Reason: Keep Vein Open Tamsulosin HCl (Flomax) 0.4 mg PO DAILY [facility] Last Admin: 06/18/17 07:26 Dose: 0.4 mg Temazepam (Restoril) 15 mg PO BEDTIME PRN PRN Reason: Insomnia Last Admin: 06/17/17 21:14 Dose: 15 mg Tramadol HCl (Ultram) 50 mg PO Q6H PRN PRN Reason: Pain (moderate 4-6) Trospium (Sanctura) 20 mg PO BID [facility] Last Admin: 06/18/17 07:25 Dose: 20 mg - Exam General: Reports: Alert, Oriented HEENT: Reports: Pupils Equal Neck: Reports: Supple Lungs: Reports: Clear to Auscultation, Normal Respiratory Effort Cardiovascular: Reports: Regular Rate, Regular Rhythm GI/Abdominal Exam: Normal Bowel Sounds, Soft, Non-Tender, No Organomegaly, No Distention, No Abnormal Bruit, No Mass, Pelvis Stable Back Exam: Reports: Normal Inspection, Full Range of Motion Extremities: Redness, Other (Left hand dempsey healing nicely DC'd dressing changes and will discharge home left foot healing nicely will send home with home health and dressing changes) *Q Meaningful Use (DIS) - VTE *Q VTE Criteria *Q: - Stroke *Q Stroke Criteria *Q: - AMI *Q AMI Criteria *Q:
== END 2017-06-18 12:05 | disposition home or self-care (01) | DRG 948 ==
LOC: LL.MS 15:47
PROVIDERS: ADMIT Family Medicine; ATTEND Family Medicine
DX: R53.1 Weakness (principal); T22.312A Burn of third degree of left forearm, initial encounter; T24.302A Burn of third degree of unspecified site of left lower limb, except ankle and foot, initial encounter; S22.31XA Fracture of one rib, right side, initial encounter for closed fracture; R41.0 Disorientation, unspecified; E11.9 Type 2 diabetes mellitus without complications; E78.5 Hyperlipidemia, unspecified; I25.10 Atherosclerotic heart disease of native coronary artery without angina pectoris; I10 Essential (primary) hypertension; F41.8 Other specified anxiety disorders; X08.8XXA Exposure to other specified smoke, fire and flames, initial encounter; Z79.84 Long term (current) use of oral hypoglycemic drugs; Z79.82 Long term (current) use of aspirin; Z79.4 Long term (current) use of insulin; Z79.899 Other long term (current) drug therapy; E78.00 Pure hypercholesterolemia, unspecified; I73.9 Peripheral vascular disease, unspecified; J44.9 Chronic obstructive pulmonary disease, unspecified; G47.33 Obstructive sleep apnea (adult) (pediatric); K21.9 Gastro-esophageal reflux disease without esophagitis; K59.09 Other constipation; N40.0 Benign prostatic hyperplasia without lower urinary tract symptoms; N39.46 Mixed incontinence; M19.90 Unspecified osteoarthritis, unspecified site; N52.9 Male erectile dysfunction, unspecified; K44.9 Diaphragmatic hernia without obstruction or gangrene; G89.29 Other chronic pain; G30.9 Alzheimer's disease, unspecified; F02.80 Dementia in other diseases classified elsewhere, unspecified severity, without behavioral disturbance, psychotic disturbance, mood disturbance, and anxiety; G62.9 Polyneuropathy, unspecified; F09 Unspecified mental disorder due to known physiological condition; Z87.891 Personal history of nicotine dependence; D64.9 Anemia, unspecified; W18.30XA Fall on same level, unspecified, initial encounter; Y92.231 Patient bathroom in hospital as the place of occurrence of the external cause
CPT/HCPCS: 36415; 71101-RT; 74020; 80048; 80053; 81001; 82962; 83036; 83605; 83735; 84443; 84550; 85025; 87070; 87086; 97110-GO; 97110-GP; 97116-GP; 97140-GO; 97140-GP; 97161-GP; 97165-GO; 97530-GO; 97530-GP; A9270-GY; J1815-GY; J7030; J7040

== ENCOUNTER 2019-06-19 09:54 | Day surgery (SDC) | payer MEDICARE, OTHER ==
[~2019-06-19 09:54] MED LIST: Propofol 200 MG/20 ML SDV ONE
[2019-06-19] MEDS ORDERED: Lactated Ringers 1,000 ML IV SCH (10:00)
[2019-06-19] MEDS ORDERED: Sodium Chloride 0.9% 10 ML Syringe FLUSH PRN (10:00)
[2019-06-19] MEDS ORDERED: Midazolam 1 MG/ML 2 ML SDV ONE ×2 (10:36→10:39)
[2019-06-19] MEDS ORDERED: Lidocaine 2% 5 ML SDV ONE (10:39)
[2019-06-19] MEDS ORDERED: Propofol 200 MG/20 ML SDV ONE (10:39)
--- NOTE | 2019-06-19 10:42 | PCM.PN ---
- General Info Date of Service: 06/19/19 - Review of Systems Systems Review Comment:: 78-year-old male referred by Anthony Chavez for EGD and colonoscopy. He is medically stable to proceed today. He states his symptoms have improved recently but did have profound nausea vomiting and bowel habit changes. I have discussed the proposed colonoscopy wit the patient. Risks such as but not limited to bleeding and GI injury reviewed. He agrees to proceed. His recent history and physical is reviewed and no significant changes are noted. - Patient Data Vitals - Most Recent: Last Vital Signs Temp 98.3 F 06/19/19 10:08 Pulse 51 L 06/19/19 10:08 Resp 18 06/19/19 10:08 BP 144/64 H 06/19/19 10:08 Pulse Ox 97 06/19/19 10:08 Weight - Most Recent: 88.451 kg Lab Results Last 24 Hours: Laboratory Results - last 24 hr 06/19/19 Range/Units 10:20 POC Glucose 115 H (65-110) mg/dl Med Orders - Current: Current Medications Lactated Ringer's (Ringers, Lactated) 1,000 mls @ 125 mls/hr IV ASDIRECTED [facility] Last Admin: 06/19/19 10:26 Dose: 125 mls/hr Sodium Chloride (Saline Flush) 10 ml FLUSH ASDIRECTED PRN PRN Reason: Keep Vein Open Discontinued Medications Midazolam HCl (Versed 1 Mg/Ml) Confirm Administered Dose 2 mg .ROUTE .STK-MED ONE Stop: 06/19/19 10:37 Propofol (Diprivan 20 Ml) Confirm Administered Dose 400 mg .ROUTE .STK-MED ONE Stop: 06/19/19 08:41 - Problem List Review Problem List Initiated/Reviewed/Updated: Yes - My Orders Last 24 Hours: My Active Orders 06/19/19 10:00 Patient Status [ADT] Routine Blood Glucose Check, Bedside [RC] ONETIME Peripheral IV Care [RC] . DIRECTED Verify Patient Consent Obtain [RC] ASDIRECTED Lactated Ringers [Ringers, Lactated] 1,000 ml IV ASDIRECTED Sodium Chloride 0.9% [Saline Flush] 10 ml FLUSH ASDIRECTED PRN Peripheral IV Insertion Adult [OM.PC] Routine - Assessment Assessment:: unexplained vomiting Change in bowel habits - Plan Plan:: EGD and colonoscopy
--- NOTE | 2019-06-19 11:35 | PCM.OPNOTE ---
- General Post-Op/Procedure Note Date of Surgery/Procedure: 06/19/19 Operative Procedure(s): EGD with Biopsy and Colonoscopy Findings: Mioderate reflux esophagitis but upper endoscopy otherwise appears normal Moderate Sigmoid Diverticulosis, colon otherwise normal Pre Op Diagnosis: Vomiting. Change in bowel habits Post-Op Diagnosis: Reflux esophagitis. Sigmoid Diverticulosis Anesthesia Technique: MAC Primary Surgeon: Juan Alvarado Pathology: Biopsies of Duodenum, Gastric Antrum, Distal Esophagus EBL in mLs: 3 Complications: None Condition: Good
[2019-06-19 15:12] VITALS: BP 154/72; PULSE 54
--- NOTE | 2019-06-20 09:16 | OR ---
Date of Procedure: 06/19/2019 PREOPERATIVE DIAGNOSES: Unexplained vomiting, change in bowel habits. POSTOPERATIVE DIAGNOSES: Reflux esophagitis, sigmoid diverticulosis. OPERATIONS PERFORMED: Esophagogastroduodenoscopy with biopsy and colonoscopy. INDICATIONS FOR SURGERY: This 78-year-old male has a recent history of profound unexplained vomiting. This has improved with the use of PPI agent. He also has had some alternating diarrhea and constipation. FINDINGS: On upper endoscopy, the patient does have a moderate degree of inflammation in the distal esophagus, just near the GE junction. This extends approximately 1 to 2 cm into the distal esophagus and is grossly consistent with reflux esophagitis. No stricturing or other ulcers are seen. The gastric mucosa otherwise appears normal without visible signs of inflammation or hyperemia and no ulcerations are noted. The duodenum appears normal to the fourth portion. On colonoscopy, the patient has a moderate degree of sigmoid diverticulosis, but there is no acute inflammation seen, and the colon is otherwise normal. DESCRIPTION OF PROCEDURE: The patient was taken to the operating room. He was given intravenous sedation and attention was first turned to colonoscopy. He was placed in a dorsal lithotomy position. Digital rectal exam was performed showing no rectal masses. The Olympus colonoscope was inserted into the rectum and retroflexed examination of the rectal canal was performed. The scope was then carefully advanced down through the entire length of the colon until the cecum was reached. Cecal acquisition was confirmed by noting the normal internal cecal anatomy including the appendiceal orifice and ileocecal valve. After examining the cecum, the scope was slowly withdrawn sequentially re- examining the colonic segments until the entire colon and rectum had been fully examined. The scope was removed and attention was turned to upper endoscopy. The Olympus gastroscope was advanced into the mouth through a mouthguard. The scope was advanced under direct visualization down through the esophagus, stomach, and into the duodenum, where examination to the fourth portion was performed. Examination of the duodenum was carried out and no abnormalities were seen. Random biopsies of the duodenal mucosa were taken because of the patient's symptoms. The scope was withdrawn back into the stomach where full examination including retroflexed examination of the fundus was performed. Random biopsies of the antrum were taken to rule out H. pylori. The GE junction and esophagus were then examined. Biopsies of the distal esophagus were taken. After the exam had been completed, the scope was removed, and the patient was taken from the operating room in satisfactory condition. ESTIMATED BLOOD LOSS: 3 mL. COMPLICATIONS: None. PROGNOSIS: Good. DIANE Alvarado MD /[id number] cc: Anthony Chavez PA-C
== END 2019-06-19 12:35 | disposition home or self-care (01) ==
LOC: LL.SDS 09:54
PROVIDERS: ATTEND Surgery
DX: K21.0 Gastro-esophageal reflux disease with esophagitis (principal); K57.30 Diverticulosis of large intestine without perforation or abscess without bleeding; K59.00 Constipation, unspecified; I10 Essential (primary) hypertension; I25.10 Atherosclerotic heart disease of native coronary artery without angina pectoris; I44.0 Atrioventricular block, first degree; E11.9 Type 2 diabetes mellitus without complications; E78.5 Hyperlipidemia, unspecified; Z88.5 Allergy status to narcotic agent; Z87.891 Personal history of nicotine dependence; Z79.84 Long term (current) use of oral hypoglycemic drugs; Z79.82 Long term (current) use of aspirin; Z79.899 Other long term (current) drug therapy
CPT/HCPCS: 00813; 43239; 45378; 82962; J2001; J2250; J2704; J7120; 88305

== ENCOUNTER 2020-01-12 11:21 | Emergency (ER) | payer MEDICARE, OTHER ==
[2020-01-12 13:37] VITALS: BP 153/78; PULSE 56
[2020-01-12] MEDS ORDERED: Ciprofloxacin in D5W 400 MG in Premix Bag 1 BAG IV ONE ×2 (13:58)
[2020-01-12] MEDS ORDERED: Sodium Chloride 0.9% 1,000 ML IV SCH (14:00)
--- NOTE | 2020-01-12 14:13 | EDM.PDOC ---
ED HPI GENERAL MEDICAL PROBLEM - General Chief Complaint: General Stated Complaint: weakness Time Seen by Provider: 01/12/20 11:30 Source of Information: Reports: Patient, Family History Limitations: Reports: No Limitations - History of Present Illness INITIAL COMMENTS - FREE TEXT/NARRATIVE: Pt presents with generalized weakness Has been weak for several weeks Pt had knee surgery and was in care facility for rehab last week was seen by ortho for post-op check and was admitted for UTI Was discharged 01/10/[address] [facility] Was on oral Cipro but has not had any antibiotics since the AM of 01/10/20 states RX was called in to closed pharmacy No fever Very weak and lethargic Unable to ambulate Pt states he did not ambulate during recent admit Decreased oral intake No chest pain No cough No N/V/D Onset: Gradual Duration: Week(s):, Getting Worse Location: Reports: Generalized Associated Symptoms: Reports: Confusion, Loss of Appetite, Weakness Generalized Pain Score (Numeric/FACES): 9 - Related Data Allergies Allergy/AdvReac Type Severity Reaction Status Date / Time morphine Allergy Other Verified 01/12/20 11:23 oxycodone Allergy Other Verified 01/12/20 11:23 Home Meds: Home Meds Cyanocobalamin (Vitamin B-12) [Vitamin B-12] 1,000 mcg PO MOWEFR@0800 07/23/15 [ History] Gabapentin [Neurontin] 300 mg PO TID 07/23/15 [History] Lisinopril [Prinivil] 5 mg PO DAILY 07/23/15 [History] SitaGLIPtin [Januvia] 100 mg PO DAILY 07/23/15 [History] amLODIPine [Norvasc] 10 mg PO BEDTIME 07/23/15 [History] atorvaSTATin [Lipitor] 40 mg PO BEDTIME 07/23/15 [History] metFORMIN [Glucophage] 1,000 mg PO BIDMEALS 07/23/15 [History] Glimepiride 1 mg PO DAILY 06/04/17 [History] Aspirin [Halfprin] 81 mg PO DAILY 06/19/19 [History] Baclofen 10 mg PO TID 06/19/19 [History] Cholecalciferol (Vitamin D3) [Vitamin D3] 2,000 unit PO DAILY 06/19/19 [History] Donepezil HCl [Aricept] 1 tab PO BEDTIME 06/19/19 [History] Ferrous Sulfate 325 mg PO SUTUTHSA@0800 06/19/19 [History] Fesoterodine Fumarate [Toviaz] 8 mg PO DAILY 06/19/19 [History] L Acidophil/B Lactis/B Longum [Florajen3] 1 cap PO DAILY 06/19/19 [History] Mirabegron [Myrbetriq] 1 tab PO DAILY 06/19/19 [History] Mirtazapine [Remeron] 15 mg PO BEDTIME 06/19/19 [History] Pantoprazole Sodium [Protonix] 1 tab PO DAILY 06/19/19 [History] Ciprofloxacin HCl [Cipro] 500 mg PO Q12H 01/12/20 [History] Past Medical History HEENT History: Reports: Impaired Vision. 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, disease of tricuspid valve, first degree atrioventricular block, mitral valve disorder, cardiomegaly Respiratory History: Reports: None Other Respiratory History: Mild obstructive sleep apnea with patient long non compliant with his C-PAP therapy Gastrointestinal History: Reports: Diverticulosis, GERD, Hemorrhoids, Other ( See Below) Other Gastrointestinal History: peptic ulcer, umbilical hernia, esophagitis Genitourinary History: Reports: BPH, Urinary Incontinence, Other (See Below) Other Genitourinary History: bladder stone, hematuria, impotence Musculoskeletal History: Reports: Fracture, Osteoarthritis, Other (See Below) Other Musculoskeletal History: degeneration of lumbar intervertebral, spondylolisthesis, postlaminectomy syndrome, rotator cuff sprain Neurological History: Reports: Other (See Below) Other Neuro History: insomnia Psychiatric History: Reports: Anxiety Other Psychiatric History: Chronic insomnia Endocrine/Metabolic History: Reports: Diabetes, Type II Other Endocrine/Metabolic History: Hypomagnesemia Hematologic History: Reports: Anemia, Iron Deficiency Immunologic History: Reports: None Oncologic (Cancer) History: Reports: None Dermatologic History: Reports: Other (See Below). Denies: Eczema, Psoriasis Other Dermatologic History: dry skin on hands, peel off - Infectious Disease History Infectious Disease History: Reports: Chicken Pox - Past Surgical History GI Surgical History: Reports: Colonoscopy, EGD Other Female Surgeries/Procedures: ureteroscopy, cystoscopy, lithotripsy Male Surgical History: Reports: TURP-Transurethral Resection of Prostate, Other (See Below) Musculoskeletal Surgical History: Reports: Shoulder Surgery Other Musculoskeletal Surgeries/Procedures:: cervical discectomy, lumbar fusion , lumbar laminectomyx2, left SI joint injectionx2, left sacral iliac joint injection, left sacral iliac joint fusion, L2-3 DAVID - Past Imaging History Past Imaging History: Reports: MARIPOSA Screen (02/09/09), Barium Enema (09/22/2000), Cardiac Echo (09/22/99), CAT Scan (CT of the head on 05/27/17, CT of the Abdomen and pelvis on 08/22/10 and 11/10/09), MRI (MRI of the right shoulder on 12/25/16, Last MRI of the lumbar region on 01/22/15 with previous evaluations on 09/23/13, 01/04/11 and 05/16/05), PFT (Last on 03/27/06), Sleep Study (Last sleep study on 08/14), Stress Testing (Last Cardiolite stress test on 08/13/08 with ejection fraction of 61% with previous evaluations on 04/05/06 and 10/11/2000, cardiac stress test on 09/23/99), Ultrasound (Pelvic ultrasound on 02/16/16, bilateral renal ultrasound on 02/16/16, Bladder ultrasound on 02/16/12, renal ultrasound on 03/16/11, right upper quadrant ultrasound on 12/01/09 with subsequent right upper quadrant ultrasound with Kinevac on 12/08/09, Bilateral shoulder ultrascan ultrasounds on 08/17/06), Other (See Below) (Flexible sigmoidoscopy on 02/20/2000 ) - History Comment History Comment: Patient is a poor historian Social & Family History - Family History Cardiac: Reports: CAD, Heart Murmur, High Cholesterol, [place], Stent, Other (See Below) Other Cardiac Family History: Father with fatal [place] at age 82, mother with unknown valvular disorder requiring surgery, brother with PTCA 3 in his 40s, hyperlipidemia in brother, hypertension in mother and sister Neurological: Reports: CVA, Other (See Below) Other Neurological Family History: Father with CVA in his 60s, mother with fatal postoperative CVA in her 70s Endocrine/Metabolic: Reports: Diabetes, type II, IDDM, Other (See Below) Other Endocrine/Metabolic Family History: Mother, sister, and brother with IDDM Oncologic: Reports: Breast, Colon, Metastatic, Prostate, Other (See Below) Other Oncologic Family History: 2 Maternal uncles with fatal prostate cancer in his 70s, maternal grandfather with fatal unknown type of cancer in his 80s, sister with fatal breast cancer at age 55, prostate cancer in brother at age 69 brother with colon cancer at age 70 - Caffeine Use Caffeine Use: Reports: Coffee - Living Situation & Occupation Living situation: Reports: (1964, 3 children,), with Family 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) ED ROS GENERAL - Review of Systems Review Of Systems: See Below Constitutional: Reports: No Symptoms Respiratory: Reports: No Symptoms Cardiovascular: Reports: No Symptoms GI/Abdominal: Reports: No Symptoms Musculoskeletal: Reports: No Symptoms Neurological: Reports: Weakness ED EXAM, GENERAL - Physical Exam Exam: See Below General Appearance: Lethargic, Mild Distress Throat/Mouth: Normal Oropharynx Neck: Supple Respiratory/Chest: Decreased Breath Sounds Cardiovascular: Regular Rate, Rhythm GI/Abdominal: Non-Tender Extremities: No Pedal Edema Neurological: No Motor/Sensory Deficits, Slow to Respond, Other (Generalized weakness) Course - Vital Signs Last Recorded V/S: Last Vital Signs Temp 97.3 F 01/12/20 13:36 Pulse 56 L 01/12/20 13:36 Resp 16 01/12/20 13:36 BP 153/78 H 01/12/20 13:36 Pulse Ox 93 L 01/12/20 13:36 - Orders/Labs/Meds Orders: Active Orders 24 hr Category Date Time Status CULTURE BLOOD [BC] Stat Lab 01/12/20 12:03 Received CULTURE BLOOD [BC] Stat Lab 01/12/20 12:10 Received Ciprofloxacin in D5W [Cipro in D5W 400 MG/200 ML] 400 Med 01/12/20 13:58 Active mg Premix Bag 1 bag IV ONETIME Sodium Chloride 0.9% [Normal Saline] 1,000 ml Med 01/12/20 14:00 Active IV ASDIRECTED Blood Culture x2 Reflex Set [OM.PC] Stat Oth 01/12/20 11:53 Ordered Medication Orders Sodium Chloride (Normal Saline) 1,000 mls @ 150 mls/hr IV ASDIRECTED ADIA Ciprofloxacin/Dextrose 400 mg/ (Premix) 200 mls @ 200 mls/hr IV ONETIME ONE Stop: 01/12/20 14:57 Labs: Laboratory Tests 01/12/20 01/12/20 01/12/20 Range/Units 12:03 12:03 12:03 WBC 7.2 (4.0-10.2) K/uL RBC 4.30 L (4.33-5.41) M/uL Hgb 11.9 L (13.1-16.8) g/dL Hct 37.7 L (39.0-49.0) % MCV 87.7 D (84.0-98.0) fL MCH 27.7 L (28.2-33.3) pg MCHC 31.6 L (31.7-36.0) g/dL RDW 14.6 H (11.2-14.1) % Plt Count 235 D (150-350) K/uL Neut % (Auto) 76.3 (45.0-80.0) % Lymph % (Auto) 12.2 (10.0-50.0) % [place] % (Auto) 7.2 (2.0-14.0) % Eos % (Auto) 3.5 (0.0-5.0) % Baso % (Auto) 0.8 (0.0-2.0) % Neut # (Auto) 5.52 (1.40-7.00) K/uL Lymph # (Auto) 0.88 (0.50-3.50) K/uL [place] # (Auto) 0.52 (0.00-1.00) K/uL Eos # (Auto) 0.25 (0.00-0.50) K/uL Baso # (Auto) 0.06 (0.00-0.20) K/uL Sodium 145 (136-145) mmol/L Potassium 4.1 (3.5-5.1) mmol/L Chloride 108 H (98-107) mmol/L Carbon Dioxide 25.6 (21.0-32.0) mmol/L BUN 25 H (7-18) mg/dL Creatinine 1.36 H (0.51-1.17) mg/dL Est Cr Clr Drug Dosing 46.97 mL/min Estimated GFR (MDRD) 51 mL/min Glucose 182 H (74-106) mg/dL Lactic Acid 3.2 H (0.4-2.0) mmol/L Calcium 9.2 (8.5-10.1) mg/dL Total Bilirubin 0.3 (0.2-1.0) mg/dL AST 13 L (15-37) U/L ALT 25 (12-78) U/L Alkaline Phosphatase 111 (46-116) IU/L Total Protein 7.4 (6.4-8.2) g/dL Albumin 3.7 (3.4-5.0) g/dL Meds: Medications Generic Name Dose Route Start Last Admin Trade Name Freq PRN Reason Stop Dose Admin Sodium Chloride 1,000 mls @ 150 mls/hr 01/12/20 14:00 Normal Saline IV ASDIRECTED ADIA Ciprofloxacin/Dextrose 400 mg/ 200 mls @ 200 mls/hr 01/12/20 13:58 Premix IV 01/12/20 14:57 ONETIME ONE - Re-Assessments/Exams Free Text/Narrative Re-Assessment/Exam: 01/12/20 14:11 See lab Pt with elevated lactic acid Pt initially hypotensive Pt given IV NS and IV Cipro in ER Pt and prefer to be re-admitted in [facility] at [facility] D /W Dr Benjamin [facility] Will accept in transfer Departure - Departure Time of Disposition: 15:00 Disposition: DC/Tfer to [facility] 02 Clinical Impression: UTI, Urinary tract infectious disease, Elevated lactic acid level - Discharge Information Referrals: PCP,None [Primary Care Provider] - Sepsis Event Note - Evaluation Sepsis Screening Result: No Definite Risk - Focused Exam Vital Signs: Vital Signs Temp Pulse Resp BP BP Pulse Ox 01/12/20 13:36 97.3 F 56 L 16 153/78 H 93 L 01/12/20 12:35 97.2 F 59 L 15 139/80 96 01/12/20 11:36 91/54 L 01/12/20 11:29 98.1 F 67 16 97/54 L 97 Date Exam was Performed: 01/12/20 Time Exam was Performed: 14:07 - My Orders Last 24 Hours: My Active Orders 01/12/20 11:53 Blood Culture x2 Reflex Set [OM.PC] Stat 01/12/20 12:03 CULTURE BLOOD [BC] Stat 01/12/20 12:10 CULTURE BLOOD [BC] Stat 01/12/20 13:58 Ciprofloxacin in D5W [Cipro in D5W 400 MG/200 ML] 400 mg Premix Bag 1 bag IV ONETIME 01/12/20 14:00 Sodium Chloride 0.9% [Normal Saline] 1,000 ml IV ASDIRECTED - Assessment/Plan Last 24 Hours: My Active Orders 01/12/20 11:53 Blood Culture x2 Reflex Set [OM.PC] Stat 01/12/20 12:03 CULTURE BLOOD [BC] Stat 01/12/20 12:10 CULTURE BLOOD [BC] Stat 01/12/20 13:58 Ciprofloxacin in D5W [Cipro in D5W 400 MG/200 ML] 400 mg Premix Bag 1 bag IV ONETIME 01/12/20 14:00 Sodium Chloride 0.9% [Normal Saline] 1,000 ml IV ASDIRECTED
[2020-01-12] MEDS ORDERED: cefTRIAXone 1 GM Vial IM ONE (14:58)
== END 2020-01-12 15:35 ==
LOC: LL.ED 11:21
DX: N39.0 Urinary tract infection, site not specified (principal); R74.0 Nonspecific elevation of levels of transaminase and lactic acid dehydrogenase [LDH]; E78.00 Pure hypercholesterolemia, unspecified; I10 Essential (primary) hypertension; K21.9 Gastro-esophageal reflux disease without esophagitis; N40.0 Benign prostatic hyperplasia without lower urinary tract symptoms; F41.9 Anxiety disorder, unspecified; E11.9 Type 2 diabetes mellitus without complications; Z88.5 Allergy status to narcotic agent; Z79.82 Long term (current) use of aspirin; Z79.899 Other long term (current) drug therapy; Z79.84 Long term (current) use of oral hypoglycemic drugs
CPT/HCPCS: 36415; 80053; 83605; 85025; 87040; 96372; 99285; J0696; J2001; 99283

== ENCOUNTER 2021-07-26 19:37 | Emergency (ER) | payer MEDICARE, OTHER ==
[2021-07-26 19:48] VITALS: BP 149/64; PULSE 63
[2021-07-26] MEDS ORDERED: Meclizine 25 MG Tab PO ONE (19:51)
[2021-07-26] MEDS ORDERED: Ondansetron 4 MG/2 ML SDV IVPUSH ONE (20:11)
[2021-07-26] MEDS ORDERED: Sodium Chloride 0.9% 500 ML IV SCH (20:15)
[2021-07-26 20:39] LABS: ANION GAP 9.2 meq/L (7-15); CHLORIDE,CL 106 mmol/L (98-107); SODIUM,NA 143 mmol/L (136-145)
--- NOTE | 2021-07-26 21:39 | EDM.PDOC ---
ED HPI GENERAL MEDICAL PROBLEM - General Chief Complaint: General Stated Complaint: Dizziness Nausea vomiting Time Seen by Provider: 07/26/21 19:50 Source of Information: Reports: Patient, Family History Limitations: Reports: No Limitations - History of Present Illness INITIAL COMMENTS - FREE TEXT/NARRATIVE: Patient comes to ER with ongoing issues consisting of vertigo/emesis. Was seen for this in [place] a few weeks back per self report. Had negative head CT at the time as part of the workup. Was told maybe he was 'dehydrated'. They came to the ER tonight wondering if IV fluid might be of help. The vertigo was worse today and he had several episodes of emesis as a result of some episodes. Has not tried meclizine. Does not have anything home for nausea. Pending PT a ppointment for evaluation and treatment of the vertigo. Denies any trauma preceding developing the vertigo. No med changes. No illnesses. No other changes. Head rotation and laying down trigger the vertigo sensation. - Related Data Allergies Allergy/AdvReac Type Severity Reaction Status Date / Time morphine Allergy Other Verified 07/26/21 19:56 oxycodone Allergy Other Verified 07/26/21 19:56 Home Meds: Home Meds Cyanocobalamin (Vitamin B-12) [Vitamin B-12] 1,000 mcg PO MOWEFR@0800 07/23/15 [History] Gabapentin [Neurontin] 300 mg PO TID 07/23/15 [History] Lisinopril [Prinivil] 5 mg PO DAILY 07/23/15 [History] SitaGLIPtin [Januvia] 100 mg PO DAILY 07/23/15 [History] amLODIPine [Norvasc] 10 mg PO BEDTIME 07/23/15 [History] atorvaSTATin [Lipitor] 40 mg PO BEDTIME 07/23/15 [History] metFORMIN [Glucophage] 1,000 mg PO BIDMEALS 07/23/15 [History] Glimepiride 1 mg PO DAILY 06/04/17 [History] Aspirin [Halfprin] 81 mg PO DAILY 06/19/19 [History] Baclofen 10 mg PO TID 06/19/19 [History] Cholecalciferol (Vitamin D3) [Vitamin D3] 2,000 unit PO DAILY 06/19/19 [History] Donepezil HCl [Aricept] 1 tab PO BEDTIME 06/19/19 [History] Ferrous Sulfate 325 mg PO SUTUTHSA@0800 06/19/19 [History] Fesoterodine Fumarate [Toviaz] 8 mg PO DAILY 06/19/19 [History] L Acidophil/B Lactis/B Longum [Florajen3] 1 cap PO DAILY 06/19/19 [History] Mirabegron [Myrbetriq] 1 tab PO DAILY 06/19/19 [History] Mirtazapine [Remeron] 15 mg PO BEDTIME 06/19/19 [History] Pantoprazole Sodium [Protonix] 1 tab PO DAILY 06/19/19 [History] Ciprofloxacin HCl [Cipro] 500 mg PO Q12H 01/12/20 [History] Promethazine [Phenergan] 25 mg PO Q8H PRN #12 tab 07/26/21 [Rx] Past Medical History HEENT History: Reports: Impaired Vision Other HEENT History: wears glasses Cardiovascular History: Reports: Arrhythmia, High Cholesterol, Hypertension, Other (See Below) Other Cardiovascular History: 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, disease of tricuspid valve, first degree atrioventricular block, mitral valve disorder, cardiomegaly Respiratory History: Reports: None Other Respiratory History: Mild obstructive sleep apnea with patient long non compliant with his C-PAP therapy Gastrointestinal History: Reports: Diverticulosis, GERD, Hemorrhoids, Other (See Below) Other Gastrointestinal History: peptic ulcer, umbilical hernia, esophagitis Genitourinary History: Reports: BPH, Urinary Incontinence, Other (See Below) Other Genitourinary History: bladder stone, hematuria, impotence Musculoskeletal History: Reports: Fracture, Osteoarthritis, Other (See Below) Other Musculoskeletal History: degeneration of lumbar intervertebral, spon dylolisthesis, postlaminectomy syndrome, rotator cuff sprain Neurological History: Reports: Other (See Below) Other Neuro History: insomnia Psychiatric History: Reports: Anxiety Other Psychiatric History: Chronic insomnia Endocrine/Metabolic History: Reports: Diabetes, Type II Other Endocrine/Metabolic History: Hypomagnesemia Hematologic History: Reports: Anemia, Iron Deficiency Immunologic History: Reports: None Oncologic (Cancer) History: Reports: None Dermatologic History: Reports: Other (See Below) Other Dermatologic History: dry skin on hands, peel off - Infectious Disease History Infectious Disease History: Reports: Chicken Pox - Past Surgical History GI Surgical History: Reports: Colonoscopy, EGD Other GI Surgeries/Procedures: Last colonoscopy on 08/14/13 with apparent polypectomy, previous EGD and colonoscopy on 07/02/08 and 03/21/04 Male Surgical History: Reports: TURP-Transurethral Resection of Prostate, Other (See Below) Other Male Surgeries/Procedures: TUIP and cystoscopy with lithotripsy and stone removal on 02/26/12, vasectomy in 1976, cystoscopy on 08/17/10, circumcision at age 20 Neurological Surgical History: Reports: C-Spine, Discectomy, Laminectomy, Lumbar Spine, Spinal Fusion Other Neurological Surgeries/Procedures: Cervical discectomy on 01/26/17, SI fusion on 04/05/16, right lumbar laminectomy on 02/19/14 with subsequent L5-S1 spinal fusion on 07/19/15, L2-3 right-sided laminectomy and discectomy on 09/19/05 Musculoskeletal Surgical History: Reports: Shoulder Surgery Other Musculoskeletal Surgeries/Procedures:: cervical discectomy, lumbar fusion, lumbar laminectomyx2, left SI joint injectionx2, left sacral iliac joint injec tion, left sacral iliac joint fusion, L2-3 DAVID - Past Imaging History Past Imaging History: Reports: MARIPOSA Screen (02/09/09), Barium Enema (09/22/2000), Cardiac Echo (09/22/99), CAT Scan (CT of the head on 05/27/17, CT of the Abdomen and pelvis on 08/22/10 and 11/10/09), MRI (MRI of the right shoulder on 12/25/16, Last MRI of the lumbar region on 01/22/15 with previous evaluations on 09/23/13, 01/04/11 and 05/16/05), PFT (Last on 03/27/06), Sleep Study (Last sleep study on 03/14/10), Stress Testing (Last Cardiolite stress test on 08/13/08 with ejection fraction of 61% with previous evaluations on 04/05/06 and 10/11/2000, cardiac stress test on 09/23/99), Ultrasound (Pelvic ultrasound on 02/16/16, bilateral renal ultrasound on 02/16/16, Bladder ultrasound on 02/16/12, renal ultrasound on 03/16/11, right upper quadrant ultrasound on 12/01/09 with subsequent right upper quadrant ultrasound with Kinevac on 12/08/09, Bilateral shoulder ultrascan ultrasounds on 08/17/06), Other (See Below) (Flexible sigmoidoscopy on 02/20/2000) - History Comment History Comment: Patient is a poor historian Social & Family History - Family History Cardiac: Reports: CAD, Heart Murmur, High Cholesterol, [place], Stent, Other (See Below) Other Cardiac Family History: Father with fatal OK at age 82, mother with unknown valvular disorder requiring surgery, brother with PTCA 3 in his 40s, hyperlipidemia in brother, hypertension in mother and sister Neurological: Reports: CVA, Other (See Below) Other Neurological Family History: Father with CVA in his 60s, mother with fatal postoperative CVA in her 70s Endocrine/Metabolic: Reports: Diabetes, type II, IDDM, Other (See Below) Other Endocrine/Metabolic Family History: Mother, sister, and brother with IDDM Oncologic: Reports: Breast, Colon, Metastatic, Prostate, Other (See Below) Other Oncologic Family History: 2 Maternal uncles with fatal prostate cancer in his 70s, maternal grandfather with fatal unknown type of cancer in his 80s, sister with fatal breast cancer at age 55, prostate cancer in brother at age 69 brother with colon cancer at age 70 - Caffeine Use Caffeine Use: Reports: Coffee - Living Situation & Occupation Living situation: Reports: (1964, 3 children,), with Family 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 Denies: Ear Pain Respiratory: Reports: No Symptoms Cardiovascular: Reports: No Symptoms GI/Abdominal: Reports: Nausea, Vomiting. Denies: Abdominal Pain, Constipation, Diarrhea, Hematemesis, Hematochezia : Reports: No Symptoms Musculoskeletal: Reports: Other (no acute changes from baseline) Skin: Reports: No Symptoms Neurological: Reports: Other (No acute changes from baseline) Psychiatric: Reports: No Symptoms ED EXAM, GENERAL - Physical Exam Exam: See Below Exam Limited By: No Limitations General Appearance: Alert, WD/WN, No Apparent Distress Eye Exam: Bilateral Eye: EOMI, PERRL, Other (no obvious nystagmus) Ears: Normal External Exam, Normal Canal, Hearing Grossly Normal, Normal TMs Nose: Normal Inspection Throat/Mouth: Normal Lips, Normal Voice, No Airway Compromise Head: Atraumatic, Normocephalic Neck: Supple, Full Range of Motion Respiratory/Chest: No Respiratory Distress, Lungs Clear, Normal Breath Sounds, No Accessory Muscle Use, Chest Non-Tender Cardiovascular: Regular Rate, Rhythm, No Murmur GI/Abdominal: Soft, Non-Tender, No Distention (Male) Exam: Deferred Rectal (Males) Exam: Deferred Back Exam: Normal Inspection Extremities: Non-Tender, Normal Capillary Refill Neurological: Alert, Oriented, Normal Cognition, No Motor/Sensory Deficits Psychiatric: Normal Affect, Normal Mood Skin Exam: Warm, Dry, Intact, Normal Color Course - Vital Signs Last Recorded V/S: Last Vital Signs Temp 36.6 C 07/26/21 19:47 Pulse 63 07/26/21 19:47 Resp 16 07/26/21 19:47 BP 149/64 H 07/26/21 19:47 Pulse Ox 93 L 07/26/21 19:47 - Orders/Labs/Meds Orders: Active Orders 24 hr Category Date Time Status UA W/MICROSCOPIC [URIN] Stat Lab 07/26/21 20:10 Ordered Labs: Laboratory Tests 07/26/21 07/26/21 Range/Units 20:20 20:20 WBC 5.5 (4.0-10.2) K/uL RBC 4.34 (4.33-5.41) M/uL Hgb 12.4 L D (13.1-16.8) g/dL Hct 37.0 L (39.0-49.0) % MCV 85.3 (84.0-98.0) fL MCH 28.6 (28.2-33.3) pg MCHC 33.5 (31.7-36.0) g/dL RDW 13.4 (11.2-14.1) % Plt Count 214 (150-350) K/uL Neut % (Auto) 66.4 (45.0-80.0) % Lymph % (Auto) 18.8 (10.0-50.0) % [place] % (Auto) 10.8 (2.0-14.0) % Eos % (Auto) 3.1 (0.0-5.0) % Baso % (Auto) 0.9 (0.0-2.0) % Neut # (Auto) 3.68 (1.40-7.00) K/uL Lymph # (Auto) 1.04 (0.50-3.50) K/uL [place] # (Auto) 0.60 (0.00-1.00) K/uL Eos # (Auto) 0.17 (0.00-0.50) K/uL Baso # (Auto) 0.05 (0.00-0.20) K/uL Sodium 143 (136-145) mmol/L Potassium 4.1 (3.5-5.1) mmol/L Chloride 106 (98-107) mmol/L Carbon Dioxide 27.8 (21.0-32.0) mmol/L Anion Gap 9.2 (7-15) meq/L BUN 18 (7-18) mg/dL Creatinine 1.00 (0.51-1.17) mg/dL Est Cr Clr Drug Dosing TNP Estimated GFR (MDRD) > 60 mL/min Glucose 149 H (70-99) mg/dL Calcium 8.8 (8.5-10.1) mg/dL Magnesium 1.6 L (1.8-2.4) mg/dL Total Bilirubin 0.5 (0.2-1.0) mg/dL AST 17 (15-37) U/L ALT 35 (12-78) U/L Alkaline Phosphatase 105 (46-116) IU/L Total Protein 6.8 (6.4-8.2) g/dL Albumin 4.0 (3.4-5.0) g/dL Meds: Medications Discontinued Medications Generic Name Dose Route Start Last Admin Trade Name Silverq PRN Reason Stop Dose Admin Sodium Chloride 500 mls @ 500 mls/hr 07/26/21 20:15 07/26/21 20:24 Normal Saline IV 500 mls/hr .BOLUS ADIA Administration Magnesium Sulfate/Dextrose 1 100 mls @ 100 mls/hr 07/26/21 20:49 gm/ Premix IV 07/26/21 21:48 ONETIME ONE Meclizine HCl 25 mg 07/26/21 19:51 07/26/21 20:24 Meclizine 25 Mg Tab PO 07/26/21 19:52 25 mg ONETIME ONE Administration Ondansetron HCl 4 mg 07/26/21 20:11 07/26/21 20:23 Ondansetron 4 Mg/2 Ml Sdv IVPUSH 07/26/21 20:12 4 mg ONETIME ONE Administration - Re-Assessments/Exams Free Text/Narrative Re-Assessment/Exam: 07/26/21 22:12 CBC/Chem/Mag/UA ordered. 500ml IV fluid/Meclizine/Zofran ordered. Labs overall unremarkable. Mag slightly low but patient did not want to wait an additional hour in the ER to receive replacement therapy. He wanted to go home after IV fluids. Overall he did not say if he felt any significant improvement of the vertigo after the above interventions. Vertigo/treatment approaches discussed. He does have a pending appointment with PT for the vertigo. 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 Follow up with primary provider at end of week encouraged. To follow up otherwise as needed if additional problems/concerns develop. 07/26/21 22:16 Recommended to patient to starting taking his Magnesium twice a day. To get level rechecked in August. Departure - Departure Time of Disposition: 21:39 Disposition: Home, Self-Care 01 Condition: Good Clinical Impression: Vertigo, Hypomagnesemia - Discharge Information *PRESCRIPTION DRUG MONITORING PROGRAM REVIEWED*: Not Applicable *COPY OF PRESCRIPTION DRUG MONITORING REPORT IN PATIENT CARLOS: Not Applicable Prescriptions: Promethazine [Phenergan] 25 mg PO Q8H PRN #12 tab PRN Reason: Nausea Instructions: Vertigo, How to Perform the Clarice Maneuver Referrals: PCP,None [Primary Care Provider] - Forms: ED Department Discharge Additional Instructions: Follow up with PT when you get an appointment situated. Follow up with your own primary provider as needed for ongoing care/concerns. See if Meclizine 25mg every 6 hours helps with the vertigo. You can buy that without a prescription at the pharmacy. 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 If symptoms persist follow up with your clinic Sunday if you can get an appointment. Sepsis Event Note (ED) - Evaluation Sepsis Screening Result: No Definite Risk - Focused Exam Vital Signs: Vital Signs Temp Pulse Resp BP Pulse Ox 07/26/21 19:47 36.6 C 63 16 149/64 H 93 L - My Orders Last 24 Hours: My Active Orders 07/26/21 20:10 UA W/MICROSCOPIC [URIN] Stat - Assessment/Plan Last 24 Hours: My Active Orders 07/26/21 20:10 UA W/MICROSCOPIC [URIN] Stat
== END 2021-07-26 21:50 | disposition home or self-care (01) ==
LOC: LL.ED 19:37
DX: R42 Dizziness and giddiness (principal); E83.42 Hypomagnesemia; E11.9 Type 2 diabetes mellitus without complications; I10 Essential (primary) hypertension; E78.00 Pure hypercholesterolemia, unspecified; K21.9 Gastro-esophageal reflux disease without esophagitis; Z79.84 Long term (current) use of oral hypoglycemic drugs; Z79.82 Long term (current) use of aspirin; Z79.899 Other long term (current) drug therapy; Z88.5 Allergy status to narcotic agent
CPT/HCPCS: 36415; 80053; 81001; 83735; 85025; 96374; 99284; 99284-25; A9270-GY; J2405; J7040

== ENCOUNTER 2021-12-05 10:58 | Emergency (ER) | payer MEDICARE, OTHER ==
[2021-12-05 12:37] LABS: POTASSIUM,POC 4.5 mmol/L (3.5-4.5)
[2021-12-05] MEDS ORDERED: Sodium Chloride 0.9% 10 ML Syringe FLUSH PRN (13:13)
[2021-12-05] MEDS: Sodium Chloride 0.9% 1,000 ML IV ONE (13:50)
[2021-12-05 14:50] VITALS: BP 139/66; PULSE 92
== END 2021-12-05 17:53 | disposition home or self-care (01) ==
LOC: LL.ED 10:58
DX: S70.01XA Contusion of right hip, initial encounter (principal); R26.81 Unsteadiness on feet; E78.00 Pure hypercholesterolemia, unspecified; I10 Essential (primary) hypertension; K21.9 Gastro-esophageal reflux disease without esophagitis; M19.90 Unspecified osteoarthritis, unspecified site; E11.9 Type 2 diabetes mellitus without complications; D50.9 Iron deficiency anemia, unspecified; Z88.5 Allergy status to narcotic agent; Z79.82 Long term (current) use of aspirin; Z79.84 Long term (current) use of oral hypoglycemic drugs; Z79.899 Other long term (current) drug therapy; W18.30XA Fall on same level, unspecified, initial encounter; Y92.009 Unspecified place in unspecified non-institutional (private) residence as the place of occurrence of the external cause
CPT/HCPCS: 36415; 72170; 80047; 81001; 85025; 99283; 99284; J7030

== ENCOUNTER 2022-11-02 17:46 | Inpatient (IN) | payer MEDICARE, OTHER ==
[2022-11-02 18:48] LABS: ANION GAP 13.7 meq/L (7-15); CHLORIDE,CL 99 mmol/L (98-107); ESTIMATED GFR 61 mL/min (>=60); SODIUM,NA 137 mmol/L (136-145)
[2022-11-02] MEDS ORDERED: Calcium Carbonate 500 MG Tab.Chew PO PRN (19:53)
[2022-11-02] MEDS ORDERED: Magnesium Hydroxide 400 MG/5 ML Susp 30 ML Cup PO PRN (19:53)
[2022-11-02] MEDS ORDERED: Acetaminophen 325 MG Tab PO PRN (19:53)
[2022-11-02] MEDS ORDERED: Insulin Lispro Protamine/Lispro 75-25 100 Units/ML 10 ML Vial SUBCUT ONE (19:59)
[2022-11-02] MEDS ORDERED: Glucagon,Human Recombinant 1 MG Vial IM PRN ×2 (19:59→20:08)
[2022-11-02] MEDS ORDERED: 50% Dextrose in Water 50 ML Syringe IVPUSH PRN ×2 (19:59→20:08)
[2022-11-02] MEDS ORDERED: Non-Formulary Medication 1 Each (Dimenhydrinate [Dramamine] 50 MG Tablet) PO PRN (20:02)
[2022-11-02] MEDS ORDERED: Polyethylene Glycol 3350 Powder 17 GM Packet PO PRN (20:02)
[2022-11-02] MEDS ORDERED: Sodium Chloride 0.9% 1,000 ML IV SCH (21:00)
[2022-11-02] MEDS: DULoxetine 30 MG Cap PO SCH (21:31)
[2022-11-03 07:47] LABS: ANION GAP 9.9 meq/L (7-15)
[2022-11-03] MEDS: Insulin Lispro 100 Units/ML 3 ML Vial SUBCUT SCH ×3 (08:28→17:16)
[2022-11-03] MEDS: Metoprolol Tartrate 25 MG Tab PO SCH ×2 (08:29→20:04)
[2022-11-03] MEDS: Cholecalciferol (Vitamin D3) 25 MCG Tab PO SCH (08:29)
[2022-11-03] MEDS: amLODIPine 5 MG Tab PO SCH (08:29)
[2022-11-03] MEDS: Aspirin 81 MG Tab.EC PO SCH (08:30)
[2022-11-03] MEDS: metFORMIN 500 MG Tab PO SCH ×2 (08:30→17:18)
[2022-11-03] MEDS: Cyanocobalamin (Vitamin B12) 1,000 MCG Tab PO SCH (08:30)
[2022-11-03] MEDS: Magnesium Oxide 400 MG Tab PO SCH ×2 (08:30→17:18)
[2022-11-03] MEDS ORDERED: Sodium Chloride 0.9% 1,000 ML IV SCH (16:45)
[2022-11-03] MEDS: Gabapentin 300 MG Cap PO SCH (20:03)
[2022-11-03] MEDS: Donepezil 10 MG Tab PO SCH (20:03)
[2022-11-03] MEDS: Mirtazapine 15 MG Tab PO SCH (20:03)
[2022-11-03] MEDS: atorvaSTATin 40 MG Tab PO SCH (20:04)
[2022-11-03] MEDS: DULoxetine 30 MG Cap PO SCH (20:04)
[2022-11-03] MEDS: Sodium Chloride 0.9% 10 ML Syringe FLUSH SCH (20:04)
[2022-11-03 21:50] LABS: RESPIRATORY SYNCYTIAL VIR NAA NEGATIVE (NEGATIVE)
[2022-11-03 21:52] LABS: CORONAVIRUS COVID-19 NAA POSITIVE (NEGATIVE)
[2022-11-04] MEDS: Insulin Lispro 100 Units/ML 3 ML Vial SUBCUT SCH ×3 (08:23→17:24)
[2022-11-04] MEDS: metFORMIN 500 MG Tab PO SCH ×2 (08:26→17:23)
[2022-11-04] MEDS: Ferrous Sulfate 325 MG Tab PO SCH (08:27)
[2022-11-04] MEDS: Aspirin 81 MG Tab.EC PO SCH (08:28)
[2022-11-04] MEDS: Magnesium Oxide 400 MG Tab PO SCH ×2 (08:28→17:23)
[2022-11-04] MEDS: amLODIPine 5 MG Tab PO SCH (08:29)
[2022-11-04] MEDS: Cholecalciferol (Vitamin D3) 25 MCG Tab PO SCH (08:30)
[2022-11-04] MEDS: Cyanocobalamin (Vitamin B12) 1,000 MCG Tab PO SCH (08:31)
[2022-11-04] MEDS: Sodium Chloride 0.9% 10 ML Syringe FLUSH SCH ×2 (08:32→19:26)
[2022-11-04] MEDS: Metoprolol Tartrate 25 MG Tab PO SCH ×2 (08:42→19:27)
[2022-11-04 08:49] LABS: ANION GAP 8.5 meq/L (7-15)
[2022-11-04] MEDS: atorvaSTATin 40 MG Tab PO SCH (19:26)
[2022-11-04] MEDS: Donepezil 10 MG Tab PO SCH (19:27)
[2022-11-04] MEDS: Gabapentin 300 MG Cap PO SCH (19:27)
[2022-11-04] MEDS: DULoxetine 30 MG Cap PO SCH (19:27)
[2022-11-04] MEDS: Mirtazapine 15 MG Tab PO SCH (19:27)
[2022-11-04] MEDS ORDERED: Non-Formulary Medication 1 Each (Triamcinolone Acetonide 80 GM Tube) TOP SCH (20:02)
[2022-11-05] MEDS: Insulin Lispro 100 Units/ML 3 ML Vial SUBCUT SCH ×3 (08:22→17:11)
[2022-11-05] MEDS: Cholecalciferol (Vitamin D3) 25 MCG Tab PO SCH (08:28)
[2022-11-05] MEDS: Ferrous Sulfate 325 MG Tab PO SCH (08:29)
[2022-11-05] MEDS: Magnesium Oxide 400 MG Tab PO SCH ×2 (08:29→17:24)
[2022-11-05] MEDS: metFORMIN 500 MG Tab PO SCH ×2 (08:30→17:23)
[2022-11-05] MEDS: amLODIPine 5 MG Tab PO SCH (08:30)
[2022-11-05] MEDS: Cyanocobalamin (Vitamin B12) 1,000 MCG Tab PO SCH (08:31)
[2022-11-05] MEDS: Metoprolol Tartrate 25 MG Tab PO SCH (08:31)
[2022-11-05] MEDS: Sodium Chloride 0.9% 10 ML Syringe FLUSH SCH (08:32)
[2022-11-05] MEDS: Aspirin 81 MG Tab.EC PO SCH (08:32)
[2022-11-05 08:33] VITALS: BP 151/73
[2022-11-05 09:06] VITALS: PULSE 58
== END 2022-11-05 18:30 | disposition swing bed (61) | DRG 637 ==
LOC: LL.ED 17:46 → LL.MS 19:30 → OBSVTOIN 19:53
PROVIDERS: ADMIT Family Medicine; ATTEND Family Medicine
DX: E11.65 Type 2 diabetes mellitus with hyperglycemia (principal); U07.1 COVID-19; I10 Essential (primary) hypertension; F03.90 Unspecified dementia, unspecified severity, without behavioral disturbance, psychotic disturbance, mood disturbance, and anxiety; H54.7 Unspecified visual loss; E78.00 Pure hypercholesterolemia, unspecified; G47.33 Obstructive sleep apnea (adult) (pediatric); K21.9 Gastro-esophageal reflux disease without esophagitis; M51.36 Other intervertebral disc degeneration, lumbar region; M43.10 Spondylolisthesis, site unspecified; G47.00 Insomnia, unspecified; F41.9 Anxiety disorder, unspecified; E83.42 Hypomagnesemia; D50.9 Iron deficiency anemia, unspecified; R80.9 Proteinuria, unspecified; W19.XXXA Unspecified fall, initial encounter; R41.0 Disorientation, unspecified; N40.1 Benign prostatic hyperplasia with lower urinary tract symptoms; N39.498 Other specified urinary incontinence; R26.89 Other abnormalities of gait and mobility; N52.9 Male erectile dysfunction, unspecified; Y92.009 Unspecified place in unspecified non-institutional (private) residence as the place of occurrence of the external cause; Z88.5 Allergy status to narcotic agent; Z98.890 Other specified postprocedural states; Z98.1 Arthrodesis status; Z79.84 Long term (current) use of oral hypoglycemic drugs; Z79.899 Other long term (current) drug therapy; Z79.82 Long term (current) use of aspirin; Z87.891 Personal history of nicotine dependence; E86.0 Dehydration
CPT/HCPCS: 0241U; 36415; 80048; 80053; 81001; 82550; 82947; 83605; 85025; 97163; 70450; 71045; 84484; 85610; 99285; A9270-GY; J1815-GY; J3490; J7030

== ENCOUNTER 2022-11-05 09:55 | Inpatient (IN) | payer MEDICARE, OTHER ==
[2022-11-05] MEDS ORDERED: Acetaminophen 325 MG Tab PO PRN (19:47)
[2022-11-05] MEDS ORDERED: Calcium Carbonate 500 MG Tab.Chew PO PRN (19:47)
[2022-11-05] MEDS ORDERED: Non-Formulary Medication 1 Each (Dimenhydrinate [Dramamine] 50 MG Tablet) PO PRN (19:47)
[2022-11-05] MEDS ORDERED: Polyethylene Glycol 3350 Powder 17 GM Packet PO PRN (19:47)
[2022-11-05] MEDS ORDERED: Non-Formulary Medication 1 Each (Dulaglutide [Trulicity] 4.5 MG/0.5 ML Pen.Injctr) SQ SCH (20:00)
[2022-11-05] MEDS: Metoprolol Tartrate 25 MG Tab PO SCH (20:18)
[2022-11-05] MEDS: Donepezil 10 MG Tab PO SCH (20:18)
[2022-11-05] MEDS: Mirtazapine 15 MG Tab PO SCH (20:18)
[2022-11-05] MEDS: atorvaSTATin 40 MG Tab PO SCH (20:18)
[2022-11-05] MEDS: DULoxetine 30 MG Cap PO SCH (20:18)
[2022-11-05] MEDS: Gabapentin 300 MG Cap PO SCH (20:18)
[2022-11-05] MEDS: Triamcinolone Acetonide 0.1% Crm 15 GM Tube TOP SCH (21:05)
[2022-11-05] MEDS ORDERED: LORazepam 0.5 MG Tab PO PRN (23:54)
[2022-11-06] MEDS: Cholecalciferol (Vitamin D3) 25 MCG Tab PO SCH (07:30)
[2022-11-06] MEDS: metFORMIN 500 MG Tab PO SCH ×2 (07:30→17:42)
[2022-11-06] MEDS: Metoprolol Tartrate 25 MG Tab PO SCH ×2 (07:31→19:25)
[2022-11-06] MEDS: Cyanocobalamin (Vitamin B12) 1,000 MCG Tab PO SCH (07:31)
[2022-11-06] MEDS: Magnesium Oxide 400 MG Tab PO SCH ×2 (07:31→17:42)
[2022-11-06] MEDS: amLODIPine 5 MG Tab PO SCH (07:32)
[2022-11-06] MEDS: Aspirin 81 MG Tab.EC PO SCH (07:32)
[2022-11-06] MEDS ORDERED: Meclizine 25 MG Tab PO PRN (14:56)
[2022-11-06] MEDS: Gabapentin 300 MG Cap PO SCH (19:26)
[2022-11-06] MEDS: atorvaSTATin 40 MG Tab PO SCH (19:26)
[2022-11-06] MEDS: Mirtazapine 15 MG Tab PO SCH (19:26)
[2022-11-06] MEDS: DULoxetine 30 MG Cap PO SCH (19:26)
[2022-11-06] MEDS: Donepezil 10 MG Tab PO SCH (19:26)
[2022-11-07] MEDS: metFORMIN 500 MG Tab PO SCH ×2 (09:20→18:16)
[2022-11-07] MEDS: Cholecalciferol (Vitamin D3) 25 MCG Tab PO SCH (09:21)
[2022-11-07] MEDS: Magnesium Oxide 400 MG Tab PO SCH ×2 (09:21→18:16)
[2022-11-07] MEDS: Cyanocobalamin (Vitamin B12) 1,000 MCG Tab PO SCH (09:21)
[2022-11-07] MEDS: Ferrous Sulfate 325 MG Tab PO SCH (09:21)
[2022-11-07] MEDS: amLODIPine 5 MG Tab PO SCH (09:21)
[2022-11-07] MEDS: Metoprolol Tartrate 25 MG Tab PO SCH ×2 (09:22→20:33)
[2022-11-07] MEDS: Aspirin 81 MG Tab.EC PO SCH (09:22)
[2022-11-07] MEDS: Gabapentin 300 MG Cap PO SCH (20:33)
[2022-11-07] MEDS: Mirtazapine 15 MG Tab PO SCH (20:33)
[2022-11-07] MEDS: atorvaSTATin 40 MG Tab PO SCH (20:33)
[2022-11-07] MEDS: DULoxetine 30 MG Cap PO SCH (20:33)
[2022-11-07] MEDS: Donepezil 10 MG Tab PO SCH (20:33)
[2022-11-08] MEDS: Aspirin 81 MG Tab.EC PO SCH (08:23)
[2022-11-08] MEDS: Cholecalciferol (Vitamin D3) 25 MCG Tab PO SCH (08:23)
[2022-11-08] MEDS: Cyanocobalamin (Vitamin B12) 1,000 MCG Tab PO SCH (08:23)
[2022-11-08] MEDS: Metoprolol Tartrate 25 MG Tab PO SCH ×2 (08:24→19:19)
[2022-11-08] MEDS: amLODIPine 5 MG Tab PO SCH (08:26)
[2022-11-08] MEDS: Magnesium Oxide 400 MG Tab PO SCH ×2 (08:27→18:19)
[2022-11-08] MEDS: metFORMIN 500 MG Tab PO SCH ×2 (08:27→18:20)
[2022-11-08] MEDS: DULoxetine 30 MG Cap PO SCH (19:19)
[2022-11-08] MEDS: atorvaSTATin 40 MG Tab PO SCH (19:19)
[2022-11-08] MEDS: Donepezil 10 MG Tab PO SCH (19:19)
[2022-11-08] MEDS: Gabapentin 300 MG Cap PO SCH (19:19)
[2022-11-08] MEDS: Mirtazapine 15 MG Tab PO SCH (19:19)
[2022-11-09] MEDS: Metoprolol Tartrate 25 MG Tab PO SCH ×2 (07:42→19:07)
[2022-11-09] MEDS: metFORMIN 500 MG Tab PO SCH ×2 (07:43→18:02)
[2022-11-09] MEDS: Cholecalciferol (Vitamin D3) 25 MCG Tab PO SCH (07:43)
[2022-11-09] MEDS: Ferrous Sulfate 325 MG Tab PO SCH (07:43)
[2022-11-09] MEDS: Cyanocobalamin (Vitamin B12) 1,000 MCG Tab PO SCH (07:43)
[2022-11-09] MEDS: amLODIPine 5 MG Tab PO SCH (07:43)
[2022-11-09] MEDS: Magnesium Oxide 400 MG Tab PO SCH ×2 (07:43→18:03)
[2022-11-09] MEDS: Aspirin 81 MG Tab.EC PO SCH (07:43)
[2022-11-09] MEDS: Donepezil 10 MG Tab PO SCH (19:07)
[2022-11-09] MEDS: Gabapentin 300 MG Cap PO SCH (19:07)
[2022-11-09] MEDS: Mirtazapine 15 MG Tab PO SCH (19:07)
[2022-11-09] MEDS: atorvaSTATin 40 MG Tab PO SCH (19:07)
[2022-11-09] MEDS: DULoxetine 30 MG Cap PO SCH (19:07)
[2022-11-10] MEDS: Cholecalciferol (Vitamin D3) 25 MCG Tab PO SCH (07:41)
[2022-11-10] MEDS: metFORMIN 500 MG Tab PO SCH ×2 (07:41→18:12)
[2022-11-10] MEDS: Cyanocobalamin (Vitamin B12) 1,000 MCG Tab PO SCH (07:42)
[2022-11-10] MEDS: amLODIPine 5 MG Tab PO SCH (07:42)
[2022-11-10] MEDS: Magnesium Oxide 400 MG Tab PO SCH ×2 (07:42→18:12)
[2022-11-10] MEDS: Aspirin 81 MG Tab.EC PO SCH (07:42)
[2022-11-10] MEDS: Metoprolol Tartrate 25 MG Tab PO SCH ×2 (07:42→19:38)
[2022-11-10] MEDS ORDERED: 50% Dextrose in Water 50 ML Syringe IVPUSH PRN (11:57)
[2022-11-10] MEDS ORDERED: Glucagon,Human Recombinant 1 MG Vial IM PRN (11:57)
[2022-11-10] MEDS: Insulin Lispro 100 Units/ML 3 ML Vial SUBCUT SCH ×3 (12:11→20:03)
[2022-11-10] MEDS: Mirtazapine 15 MG Tab PO SCH (19:38)
[2022-11-10] MEDS: Donepezil 10 MG Tab PO SCH (19:38)
[2022-11-10] MEDS: Gabapentin 300 MG Cap PO SCH (19:39)
[2022-11-10] MEDS: DULoxetine 30 MG Cap PO SCH (19:39)
[2022-11-10] MEDS: atorvaSTATin 40 MG Tab PO SCH (19:39)
[2022-11-11] MEDS: Magnesium Oxide 400 MG Tab PO SCH ×2 (07:34→17:09)
[2022-11-11] MEDS: Cholecalciferol (Vitamin D3) 25 MCG Tab PO SCH (07:35)
[2022-11-11] MEDS: Cyanocobalamin (Vitamin B12) 1,000 MCG Tab PO SCH (07:35)
[2022-11-11] MEDS: Aspirin 81 MG Tab.EC PO SCH (07:35)
[2022-11-11] MEDS: metFORMIN 500 MG Tab PO SCH ×2 (07:35→17:08)
[2022-11-11] MEDS: amLODIPine 5 MG Tab PO SCH (07:35)
[2022-11-11] MEDS: Ferrous Sulfate 325 MG Tab PO SCH (07:36)
[2022-11-11] MEDS: Insulin Lispro 100 Units/ML 3 ML Vial SUBCUT SCH ×4 (07:38→20:44)
[2022-11-11] MEDS: Metoprolol Tartrate 25 MG Tab PO SCH ×2 (10:23→19:15)
[2022-11-11] MEDS: DULoxetine 30 MG Cap PO SCH (19:12)
[2022-11-11] MEDS: Gabapentin 300 MG Cap PO SCH (19:12)
[2022-11-11] MEDS: Mirtazapine 15 MG Tab PO SCH (19:13)
[2022-11-11] MEDS: Donepezil 10 MG Tab PO SCH (19:13)
[2022-11-11] MEDS: atorvaSTATin 40 MG Tab PO SCH (19:13)
[2022-11-11] MEDS: Triamcinolone Acetonide 0.1% Crm 15 GM Tube TOP SCH (20:43)
[2022-11-12] MEDS: Cholecalciferol (Vitamin D3) 25 MCG Tab PO SCH (08:19)
[2022-11-12] MEDS: Magnesium Oxide 400 MG Tab PO SCH ×2 (08:20→17:31)
[2022-11-12] MEDS: Aspirin 81 MG Tab.EC PO SCH (08:20)
[2022-11-12] MEDS: metFORMIN 500 MG Tab PO SCH ×2 (08:20→17:31)
[2022-11-12] MEDS: amLODIPine 5 MG Tab PO SCH (08:21)
[2022-11-12] MEDS: Metoprolol Tartrate 25 MG Tab PO SCH ×2 (08:22→19:22)
[2022-11-12] MEDS: Ferrous Sulfate 325 MG Tab PO SCH (08:22)
[2022-11-12] MEDS: Cyanocobalamin (Vitamin B12) 1,000 MCG Tab PO SCH (08:22)
[2022-11-12] MEDS: Insulin Lispro 100 Units/ML 3 ML Vial SUBCUT SCH ×4 (08:23→20:00)
[2022-11-12] MEDS: Donepezil 10 MG Tab PO SCH (19:18)
[2022-11-12] MEDS: Gabapentin 300 MG Cap PO SCH (19:18)
[2022-11-12] MEDS: atorvaSTATin 40 MG Tab PO SCH (19:18)
[2022-11-12] MEDS: DULoxetine 30 MG Cap PO SCH (19:18)
[2022-11-12] MEDS: Mirtazapine 15 MG Tab PO SCH (19:18)
[2022-11-12] MEDS: Triamcinolone Acetonide 0.1% Crm 15 GM Tube TOP SCH (19:29)
[2022-11-13] MEDS: metFORMIN 500 MG Tab PO SCH ×2 (08:29→17:14)
[2022-11-13] MEDS: Cyanocobalamin (Vitamin B12) 1,000 MCG Tab PO SCH (08:29)
[2022-11-13] MEDS: Aspirin 81 MG Tab.EC PO SCH (08:30)
[2022-11-13] MEDS: Metoprolol Tartrate 25 MG Tab PO SCH ×2 (08:30→20:12)
[2022-11-13] MEDS: Cholecalciferol (Vitamin D3) 25 MCG Tab PO SCH (08:30)
[2022-11-13] MEDS: Magnesium Oxide 400 MG Tab PO SCH ×2 (08:30→17:14)
[2022-11-13] MEDS: amLODIPine 5 MG Tab PO SCH (08:30)
[2022-11-13] MEDS: Insulin Lispro 100 Units/ML 3 ML Vial SUBCUT SCH ×4 (08:30→20:13)
[2022-11-13] MEDS: Gabapentin 300 MG Cap PO SCH (20:12)
[2022-11-13] MEDS: atorvaSTATin 40 MG Tab PO SCH (20:12)
[2022-11-13] MEDS: Mirtazapine 15 MG Tab PO SCH (20:12)
[2022-11-13] MEDS: DULoxetine 30 MG Cap PO SCH (20:12)
[2022-11-13] MEDS: Donepezil 10 MG Tab PO SCH (20:13)
[2022-11-14] MEDS: Magnesium Oxide 400 MG Tab PO SCH ×2 (08:32→17:37)
[2022-11-14] MEDS: Aspirin 81 MG Tab.EC PO SCH (08:32)
[2022-11-14] MEDS: Cyanocobalamin (Vitamin B12) 1,000 MCG Tab PO SCH (08:32)
[2022-11-14] MEDS: Cholecalciferol (Vitamin D3) 25 MCG Tab PO SCH (08:32)
[2022-11-14] MEDS: Ferrous Sulfate 325 MG Tab PO SCH (08:32)
[2022-11-14] MEDS: metFORMIN 500 MG Tab PO SCH ×2 (08:32→17:37)
[2022-11-14] MEDS: amLODIPine 5 MG Tab PO SCH (08:32)
[2022-11-14] MEDS: Metoprolol Tartrate 25 MG Tab PO SCH ×2 (08:33→19:18)
[2022-11-14] MEDS: Insulin Lispro 100 Units/ML 3 ML Vial SUBCUT SCH ×4 (08:33→20:22)
[2022-11-14] MEDS: Gabapentin 300 MG Cap PO SCH (19:17)
[2022-11-14] MEDS: Mirtazapine 15 MG Tab PO SCH (19:18)
[2022-11-14] MEDS: atorvaSTATin 40 MG Tab PO SCH (19:18)
[2022-11-14] MEDS: Donepezil 10 MG Tab PO SCH (19:18)
[2022-11-14] MEDS: DULoxetine 30 MG Cap PO SCH (19:18)
[2022-11-15] MEDS: Aspirin 81 MG Tab.EC PO SCH (07:53)
[2022-11-15] MEDS: metFORMIN 500 MG Tab PO SCH ×2 (07:53→17:12)
[2022-11-15] MEDS: amLODIPine 5 MG Tab PO SCH (07:53)
[2022-11-15] MEDS: Cyanocobalamin (Vitamin B12) 1,000 MCG Tab PO SCH (07:53)
[2022-11-15] MEDS: Cholecalciferol (Vitamin D3) 25 MCG Tab PO SCH (07:53)
[2022-11-15] MEDS: Magnesium Oxide 400 MG Tab PO SCH ×2 (07:53→17:12)
[2022-11-15] MEDS: Metoprolol Tartrate 25 MG Tab PO SCH ×2 (07:53→19:45)
[2022-11-15] MEDS: Insulin Lispro 100 Units/ML 3 ML Vial SUBCUT SCH ×4 (07:54→20:10)
[2022-11-15] MEDS: DULoxetine 30 MG Cap PO SCH (19:44)
[2022-11-15] MEDS: atorvaSTATin 40 MG Tab PO SCH (19:44)
[2022-11-15] MEDS: Mirtazapine 15 MG Tab PO SCH (19:45)
[2022-11-15] MEDS: Donepezil 10 MG Tab PO SCH (19:45)
[2022-11-15] MEDS: Gabapentin 300 MG Cap PO SCH (19:45)
[2022-11-16 09:14] VITALS: PULSE 54
[2022-11-16] MEDS: Cholecalciferol (Vitamin D3) 25 MCG Tab PO SCH (09:17)
[2022-11-16] MEDS: metFORMIN 500 MG Tab PO SCH (09:18)
[2022-11-16] MEDS: Metoprolol Tartrate 25 MG Tab PO SCH (09:18)
[2022-11-16] MEDS: Aspirin 81 MG Tab.EC PO SCH (09:18)
[2022-11-16] MEDS: amLODIPine 5 MG Tab PO SCH (09:18)
[2022-11-16] MEDS: Magnesium Oxide 400 MG Tab PO SCH (09:18)
[2022-11-16] MEDS: Insulin Lispro 100 Units/ML 3 ML Vial SUBCUT SCH ×2 (09:19→11:56)
[2022-11-16] MEDS: Ferrous Sulfate 325 MG Tab PO SCH (09:19)
[2022-11-16 09:20] VITALS: BP 122/68
[2022-11-16] MEDS: Cyanocobalamin (Vitamin B12) 1,000 MCG Tab PO SCH (09:20)
== END 2022-11-16 17:05 | disposition home or self-care (01) | DRG 948 ==
LOC: LL.MS 15:31
PROVIDERS: ADMIT Emergency Medicine; ATTEND Emergency Medicine
DX: R53.1 Weakness (principal); R29.6 Repeated falls; E11.65 Type 2 diabetes mellitus with hyperglycemia; F03.90 Unspecified dementia, unspecified severity, without behavioral disturbance, psychotic disturbance, mood disturbance, and anxiety; Z79.82 Long term (current) use of aspirin; Z79.899 Other long term (current) drug therapy; Z79.84 Long term (current) use of oral hypoglycemic drugs; Y92.009 Unspecified place in unspecified non-institutional (private) residence as the place of occurrence of the external cause; Z86.16 Personal history of COVID-19
CPT/HCPCS: 82947; 97110-GO; 97110-GP; 97129-GO; 97162-GP; 97165-GO; 97530-GO; 97530-GP; 97535-GO; A9270-GY

== ENCOUNTER 2022-12-29 23:38 | Emergency (ER) | payer MEDICARE, OTHER ==
[2022-12-30 00:41] LABS: ANION GAP 12.3 meq/L (7-15)
[2022-12-30] MEDS ORDERED: Glucagon,Human Recombinant 1 MG Vial IM PRN (00:53)
[2022-12-30] MEDS ORDERED: 50% Dextrose in Water 50 ML Syringe IVPUSH PRN (00:53)
[2022-12-30] MEDS ORDERED: Insulin Lispro 100 Units/ML 3 ML Vial SUBCUT ONE (00:54)
[2022-12-30 06:13] VITALS: BP 133/72; PULSE 74
== END 2022-12-30 09:33 | disposition home or self-care (01) ==
LOC: LL.ED 23:38
DX: F03.B0 Unspecified dementia, moderate, without behavioral disturbance, psychotic disturbance, mood disturbance, and anxiety (principal); F41.9 Anxiety disorder, unspecified; F32.A Depression, unspecified; R53.1 Weakness; R54 Age-related physical debility; E11.65 Type 2 diabetes mellitus with hyperglycemia; I11.9 Hypertensive heart disease without heart failure; Z88.5 Allergy status to narcotic agent; Z79.899 Other long term (current) drug therapy; Z79.82 Long term (current) use of aspirin
CPT/HCPCS: 36415; 80048; 85025; 99284; 99285; J1815-GY

== ENCOUNTER 2023-01-01 20:51 | Inpatient (IN) | payer OTHER, MEDICARE ==
[2023-01-01] MEDS ORDERED: Sodium Chloride 0.9% 1,000 ML IV ONE (21:06)
[2023-01-01] MEDS ORDERED: Acetaminophen 500 MG Tab PO ONE (21:18)
[2023-01-01] MEDS ORDERED: Insulin Regular, Human 100 Units/ML 3 ML Vial SUBCUT ONE (21:19)
[2023-01-01] MEDS ORDERED: Glucagon,Human Recombinant 1 MG Vial IM PRN ×3 (21:19→23:40)
[2023-01-01] MEDS ORDERED: 50% Dextrose in Water 50 ML Syringe IVPUSH PRN ×3 (21:19→23:40)
[2023-01-01 21:57] LABS: CHLORIDE,CL 97 mmol/L (98-107); SODIUM,NA 135 mmol/L (136-145)
[2023-01-01 21:58] LABS: ANION GAP 18.6 meq/L (7-15)
[2023-01-01 21:59] LABS: ESTIMATED GFR 58 mL/min (>=60)
[2023-01-01 22:11] LABS: CORONAVIRUS COVID-19 NAA NEGATIVE (NEGATIVE); RESPIRATORY SYNCYTIAL VIR NAA NEGATIVE (NEGATIVE)
[2023-01-01] MEDS ORDERED: Insulin Regular, Human 100 Units/ML 3 ML Vial IV ONE (22:46)
[2023-01-01] MEDS ORDERED: Acetaminophen 325 MG Tab PO PRN (23:32)
[2023-01-01] MEDS ORDERED: Calcium Carbonate 500 MG Tab.Chew PO PRN (23:32)
[2023-01-01] MEDS ORDERED: Polyethylene Glycol 3350 Powder 17 GM Packet PO PRN (23:32)
[2023-01-01] MEDS ORDERED: LORazepam 2 MG/ML SDV IVPUSH PRN (23:42)
[2023-01-02] MEDS ORDERED: Insulin Glarg,Human.Rec.Analog 100 Unit/ML SUBCUT ONE (00:44)
[2023-01-02] MEDS: Sodium Chloride 0.9% 1,000 ML IV SCH ×2 (00:59→20:39)
[2023-01-02] MEDS: cefTRIAXone 2 GM in Sodium Chloride 0.9% 100 ML IV SCH ×2 (01:00→23:43)
[2023-01-02] MEDS: Azithromycin 500 MG in Sodium Chloride 0.9% 250 ML IV SCH (01:39)
[2023-01-02 07:52] LABS: ANION GAP 7.3 meq/L (7-15)
[2023-01-02] MEDS: Tamsulosin 0.4 MG Cap.ER PO SCH (08:08)
[2023-01-02] MEDS: Metoprolol Tartrate 25 MG Tab PO SCH ×2 (08:08→20:12)
[2023-01-02] MEDS: Aspirin 81 MG Tab.EC PO SCH (08:08)
[2023-01-02] MEDS: METFORMIN 500 MG PO SCH (17:03)
[2023-01-02] MEDS ORDERED: Glucagon,Human Recombinant 1 MG Vial IM PRN (17:35)
[2023-01-02] MEDS ORDERED: 50% Dextrose in Water 50 ML Syringe IVPUSH PRN (17:35)
[2023-01-02] MEDS: Insulin Regular, Human 100 Units/ML 3 ML Vial IV SCH (18:32)
[2023-01-02] MEDS: Insulin Glarg,Human.Rec.Analog 100 Unit/ML SUBCUT SCH (20:08)
[2023-01-02] MEDS: Gabapentin 300 MG Cap PO SCH (20:12)
[2023-01-02] MEDS: Donepezil 10 MG Tab PO SCH (20:12)
[2023-01-02] MEDS: Mirtazapine 15 MG Tab PO SCH (20:13)
[2023-01-02] MEDS: DULoxetine 30 MG Cap PO SCH (20:13)
[2023-01-02] MEDS: Sodium Chloride 0.9% 10 ML Syringe FLUSH PRN (20:15)
[2023-01-03] MEDS: Azithromycin 500 MG in Sodium Chloride 0.9% 250 ML IV SCH (01:00)
[2023-01-03] MEDS: Metoprolol Tartrate 25 MG Tab PO SCH ×2 (08:13→20:18)
[2023-01-03] MEDS: Aspirin 81 MG Tab.EC PO SCH (08:13)
[2023-01-03] MEDS: Tamsulosin 0.4 MG Cap.ER PO SCH (08:13)
[2023-01-03] MEDS: METFORMIN 500 MG PO SCH ×2 (08:14→17:26)
[2023-01-03] MEDS: Insulin Regular, Human 100 Units/ML 3 ML Vial IV SCH (08:15)
[2023-01-03] MEDS ORDERED: Insulin Regular, Human 100 Units/ML 3 ML Vial IV SCH (12:30)
[2023-01-03] MEDS ORDERED: Insulin Regular, Human 100 Units/ML 3 ML Vial SUBCUT SCH (12:35)
[2023-01-03] MEDS ORDERED: 50% Dextrose in Water 50 ML Syringe IVPUSH PRN (20:08)
[2023-01-03] MEDS ORDERED: Glucagon,Human Recombinant 1 MG Vial IM PRN (20:08)
[2023-01-03] MEDS: Gabapentin 300 MG Cap PO SCH (20:25)
[2023-01-03] MEDS: Lisinopril 5 MG Tab PO SCH (20:26)
[2023-01-03] MEDS: Mirtazapine 15 MG Tab PO SCH (20:26)
[2023-01-03] MEDS: DULoxetine 30 MG Cap PO SCH (20:26)
[2023-01-03] MEDS: Donepezil 10 MG Tab PO SCH (20:26)
[2023-01-03] MEDS: Insulin Glarg,Human.Rec.Analog 100 Unit/ML SUBCUT SCH (20:27)
[2023-01-03] MEDS: Insulin Lispro 100 Units/ML 3 ML Vial SUBCUT SCH (20:30)
[2023-01-03] MEDS: Sodium Chloride 0.9% 10 ML Syringe FLUSH PRN (23:39)
[2023-01-03] MEDS: cefTRIAXone 2 GM in Sodium Chloride 0.9% 100 ML IV SCH (23:39)
[2023-01-04] MEDS: Azithromycin 500 MG in Sodium Chloride 0.9% 250 ML IV SCH (00:17)
[2023-01-04] MEDS: Sodium Chloride 0.9% 10 ML Syringe FLUSH PRN (00:17)
[2023-01-04] MEDS ORDERED: Magnesium Chloride 64 MG Tab.ER PO SCH (08:00)
[2023-01-04 08:26] VITALS: BP 124/51; PULSE 55
[2023-01-04] MEDS: Insulin Lispro 100 Units/ML 3 ML Vial SUBCUT SCH ×3 (08:27→17:20)
[2023-01-04] MEDS: METFORMIN 500 MG PO SCH ×2 (08:27→17:20)
[2023-01-04] MEDS: Tamsulosin 0.4 MG Cap.ER PO SCH (08:28)
[2023-01-04] MEDS: Aspirin 81 MG Tab.EC PO SCH (08:28)
[2023-01-04] MEDS: Lisinopril 5 MG Tab PO SCH (08:28)
== END 2023-01-04 17:26 | disposition swing bed (61) | DRG 638 ==
LOC: LL.ED 20:51 → LL.MS 22:50
PROVIDERS: ADMIT Emergency Medicine; ATTEND Emergency Medicine
DX: E11.10 Type 2 diabetes mellitus with ketoacidosis without coma (principal); E86.0 Dehydration; N17.9 Acute kidney failure, unspecified; E11.65 Type 2 diabetes mellitus with hyperglycemia; R53.1 Weakness; R53.81 Other malaise; R26.81 Unsteadiness on feet; Z20.822 Contact with and (suspected) exposure to COVID-19; I10 Essential (primary) hypertension; R32 Unspecified urinary incontinence; E78.00 Pure hypercholesterolemia, unspecified; H54.7 Unspecified visual loss; F41.9 Anxiety disorder, unspecified; F03.90 Unspecified dementia, unspecified severity, without behavioral disturbance, psychotic disturbance, mood disturbance, and anxiety; D64.9 Anemia, unspecified; Z88.5 Allergy status to narcotic agent; I44.0 Atrioventricular block, first degree; G47.33 Obstructive sleep apnea (adult) (pediatric); K21.9 Gastro-esophageal reflux disease without esophagitis; Z98.890 Other specified postprocedural states; N40.1 Benign prostatic hyperplasia with lower urinary tract symptoms; N39.498 Other specified urinary incontinence; Z79.82 Long term (current) use of aspirin; Z79.84 Long term (current) use of oral hypoglycemic drugs; Z79.899 Other long term (current) drug therapy
CPT/HCPCS: 0241U; 36415; 51702; 71045; 80048; 80053; 81003; 82947; 83605; 85025; 87040; 93005; 93010; 96360; 97163-GP; 97165-GO; 97530-GP; 99285-25; A9270-GY; J0456; J0696; J1815-GY; J3490; J7030; J7050

== ENCOUNTER 2023-01-04 11:56 | Inpatient (IN) | payer MEDICARE, OTHER ==
[2023-01-04] MEDS ORDERED: Calcium Carbonate 500 MG Tab.Chew PO PRN (18:40)
[2023-01-04] MEDS ORDERED: Polyethylene Glycol 3350 Powder 17 GM Packet PO PRN (18:40)
[2023-01-04] MEDS ORDERED: 50% Dextrose in Water 50 ML Syringe IVPUSH PRN (18:40)
[2023-01-04] MEDS ORDERED: Glucagon,Human Recombinant 1 MG Vial IM PRN ×2 (18:40)
[2023-01-04] MEDS ORDERED: Acetaminophen 325 MG Tab PO PRN (18:40)
[2023-01-04] MEDS: Donepezil 10 MG Tab PO SCH (20:46)
[2023-01-04] MEDS: Gabapentin 300 MG Cap PO SCH (20:46)
[2023-01-04] MEDS: DULoxetine 30 MG Cap PO SCH (20:46)
[2023-01-04] MEDS: Mirtazapine 15 MG Tab PO SCH (20:47)
[2023-01-04] MEDS: Insulin Glarg,Human.Rec.Analog 100 Unit/ML SUBCUT SCH (20:48)
[2023-01-04] MEDS ORDERED: Insulin Lispro 100 Units/ML 3 ML Vial SUBCUT SCH (21:00)
[2023-01-05] MEDS ORDERED: Glucagon,Human Recombinant 1 MG Vial IM PRN (02:24)
[2023-01-05] MEDS ORDERED: 50% Dextrose in Water 50 ML Syringe IVPUSH PRN (02:24)
[2023-01-05] MEDS: Magnesium Chloride 64 MG Tab.ER PO SCH (08:09)
[2023-01-05] MEDS: Cholecalciferol (Vitamin D3) 25 MCG Tab PO SCH (08:09)
[2023-01-05] MEDS: Lisinopril 5 MG Tab PO SCH (08:09)
[2023-01-05] MEDS: Tamsulosin 0.4 MG Cap.ER PO SCH (08:09)
[2023-01-05] MEDS: Aspirin 81 MG Tab.EC PO SCH (08:09)
[2023-01-05] MEDS: Cyanocobalamin (Vitamin B12) 1,000 MCG Tab PO SCH (08:10)
[2023-01-05] MEDS: Insulin Lispro 100 Units/ML 3 ML Vial SUBCUT SCH ×4 (08:13→20:26)
[2023-01-05] MEDS: METFORMIN 500 MG PO SCH ×2 (09:43→17:26)
[2023-01-05] MEDS ORDERED: Sodium Chloride 0.9% 10 ML Syringe FLUSH PRN (16:22)
[2023-01-05] MEDS ORDERED: cefTRIAXone 1 GM in Sodium Chloride 0.9% 100 ML IV SCH (16:30)
[2023-01-05] MEDS ORDERED: Azithromycin 500 MG in Sodium Chloride 0.9% 250 ML IV SCH (17:00)
[2023-01-05] MEDS: Donepezil 10 MG Tab PO SCH (19:30)
[2023-01-05] MEDS: DULoxetine 30 MG Cap PO SCH (19:30)
[2023-01-05] MEDS: Mirtazapine 15 MG Tab PO SCH (19:30)
[2023-01-05] MEDS: Gabapentin 300 MG Cap PO SCH (19:30)
[2023-01-05] MEDS: Insulin Glarg,Human.Rec.Analog 100 Unit/ML SUBCUT SCH (20:24)
[2023-01-06 07:54] LABS: ANION GAP 7.8 meq/L (7-15)
[2023-01-06] MEDS: Cyanocobalamin (Vitamin B12) 1,000 MCG Tab PO SCH (08:26)
[2023-01-06] MEDS: Lisinopril 5 MG Tab PO SCH (08:26)
[2023-01-06] MEDS: Cholecalciferol (Vitamin D3) 25 MCG Tab PO SCH (08:26)
[2023-01-06] MEDS: Magnesium Chloride 64 MG Tab.ER PO SCH (08:26)
[2023-01-06] MEDS: Insulin Lispro 100 Units/ML 3 ML Vial SUBCUT SCH ×4 (08:26→20:35)
[2023-01-06] MEDS: Aspirin 81 MG Tab.EC PO SCH (08:26)
[2023-01-06] MEDS: Tamsulosin 0.4 MG Cap.ER PO SCH (08:27)
[2023-01-06] MEDS: METFORMIN 500 MG PO SCH ×2 (08:30→17:24)
[2023-01-06] MEDS: DULoxetine 30 MG Cap PO SCH (19:43)
[2023-01-06] MEDS: Donepezil 10 MG Tab PO SCH (19:44)
[2023-01-06] MEDS: Gabapentin 300 MG Cap PO SCH (19:44)
[2023-01-06] MEDS: Mirtazapine 15 MG Tab PO SCH (19:44)
[2023-01-06] MEDS: Insulin Glarg,Human.Rec.Analog 100 Unit/ML SUBCUT SCH (20:34)
[2023-01-07] MEDS: Tamsulosin 0.4 MG Cap.ER PO SCH (08:02)
[2023-01-07] MEDS: Aspirin 81 MG Tab.EC PO SCH (08:02)
[2023-01-07] MEDS: Magnesium Chloride 64 MG Tab.ER PO SCH (08:02)
[2023-01-07] MEDS: Cyanocobalamin (Vitamin B12) 1,000 MCG Tab PO SCH (08:03)
[2023-01-07] MEDS: Cholecalciferol (Vitamin D3) 25 MCG Tab PO SCH (08:03)
[2023-01-07] MEDS: Lisinopril 5 MG Tab PO SCH (08:03)
[2023-01-07] MEDS: Insulin Lispro 100 Units/ML 3 ML Vial SUBCUT SCH ×4 (08:04→20:12)
[2023-01-07] MEDS: METFORMIN 500 MG PO SCH ×2 (08:08→17:20)
[2023-01-07] MEDS: Mirtazapine 15 MG Tab PO SCH (19:36)
[2023-01-07] MEDS: Gabapentin 300 MG Cap PO SCH (19:36)
[2023-01-07] MEDS: Donepezil 10 MG Tab PO SCH (19:36)
[2023-01-07] MEDS: DULoxetine 30 MG Cap PO SCH (19:36)
[2023-01-07] MEDS: Insulin Glarg,Human.Rec.Analog 100 Unit/ML SUBCUT SCH (20:10)
[2023-01-08] MEDS: Cyanocobalamin (Vitamin B12) 1,000 MCG Tab PO SCH (08:04)
[2023-01-08] MEDS: Lisinopril 5 MG Tab PO SCH (08:04)
[2023-01-08] MEDS: Cholecalciferol (Vitamin D3) 25 MCG Tab PO SCH (08:04)
[2023-01-08] MEDS: Tamsulosin 0.4 MG Cap.ER PO SCH (08:04)
[2023-01-08] MEDS: Magnesium Chloride 64 MG Tab.ER PO SCH (08:04)
[2023-01-08] MEDS: Aspirin 81 MG Tab.EC PO SCH (08:04)
[2023-01-08] MEDS: METFORMIN 500 MG PO SCH ×2 (08:05→17:15)
[2023-01-08] MEDS: Insulin Lispro 100 Units/ML 3 ML Vial SUBCUT SCH ×4 (08:05→20:32)
[2023-01-08] MEDS: DULoxetine 30 MG Cap PO SCH (20:28)
[2023-01-08] MEDS: Gabapentin 300 MG Cap PO SCH (20:29)
[2023-01-08] MEDS: Mirtazapine 15 MG Tab PO SCH (20:29)
[2023-01-08] MEDS: Donepezil 10 MG Tab PO SCH (20:29)
[2023-01-08] MEDS: Insulin Glarg,Human.Rec.Analog 100 Unit/ML SUBCUT SCH (20:29)
[2023-01-09] MEDS: Magnesium Chloride 64 MG Tab.ER PO SCH (07:17)
[2023-01-09] MEDS: Cholecalciferol (Vitamin D3) 25 MCG Tab PO SCH (07:17)
[2023-01-09] MEDS: Tamsulosin 0.4 MG Cap.ER PO SCH (07:17)
[2023-01-09] MEDS: Cyanocobalamin (Vitamin B12) 1,000 MCG Tab PO SCH (07:17)
[2023-01-09] MEDS: Aspirin 81 MG Tab.EC PO SCH (07:17)
[2023-01-09] MEDS: Lisinopril 5 MG Tab PO SCH (07:17)
[2023-01-09] MEDS: Insulin Lispro 100 Units/ML 3 ML Vial SUBCUT SCH ×2 (07:18→11:35)
[2023-01-09] MEDS: METFORMIN 500 MG PO SCH (07:18)
[2023-01-09 07:35] LABS: ANION GAP 9.2 meq/L (7-15)
[2023-01-09] MEDS: Magnesium Oxide 400 MG Tab PO SCH (11:35)
[2023-01-09] MEDS ORDERED: Magnesium Oxide 400 MG Tab PO SCH (12:00)
[2023-01-09 14:08] LABS: HEMOGLOBIN A1C 10.6 % (4.3-5.7)
[2023-01-09] MEDS: metFORMIN 500 MG Tab.ER PO SCH (17:34)
[2023-01-09] MEDS ORDERED: TRULICITY 1.5 MG/0.5 ML SUBCUT SCH (18:00)
[2023-01-09] MEDS: DULoxetine 30 MG Cap PO SCH (19:33)
[2023-01-09] MEDS: Gabapentin 300 MG Cap PO SCH (19:33)
[2023-01-09] MEDS: Donepezil 10 MG Tab PO SCH (19:33)
[2023-01-09] MEDS: Mirtazapine 15 MG Tab PO SCH (19:34)
[2023-01-10] MEDS: Aspirin 81 MG Tab.EC PO SCH (08:55)
[2023-01-10] MEDS: metFORMIN 500 MG Tab.ER PO SCH ×2 (08:55→17:44)
[2023-01-10] MEDS: Cyanocobalamin (Vitamin B12) 1,000 MCG Tab PO SCH (08:55)
[2023-01-10] MEDS: Tamsulosin 0.4 MG Cap.ER PO SCH (08:55)
[2023-01-10] MEDS: Cholecalciferol (Vitamin D3) 25 MCG Tab PO SCH (08:56)
[2023-01-10] MEDS ORDERED: Polyethylene Glycol 3350 Powder 510 GM Bot PO PRN (10:51)
[2023-01-10] MEDS: Magnesium Oxide 400 MG Tab PO SCH (11:36)
[2023-01-10] MEDS: DULoxetine 30 MG Cap PO SCH (20:06)
[2023-01-10] MEDS: Donepezil 10 MG Tab PO SCH (20:06)
[2023-01-10] MEDS: Mirtazapine 15 MG Tab PO SCH (20:07)
[2023-01-10] MEDS: Gabapentin 300 MG Cap PO SCH (20:07)
[2023-01-11] MEDS: metFORMIN 500 MG Tab.ER PO SCH ×2 (07:44→17:36)
[2023-01-11] MEDS: Tamsulosin 0.4 MG Cap.ER PO SCH (07:46)
[2023-01-11] MEDS: Cyanocobalamin (Vitamin B12) 1,000 MCG Tab PO SCH (07:50)
[2023-01-11] MEDS: Cholecalciferol (Vitamin D3) 25 MCG Tab PO SCH (07:50)
[2023-01-11] MEDS ORDERED: TRULICITY 1.5 MG/0.5 ML SUBCUT SCH (08:00)
[2023-01-11] MEDS: Aspirin 81 MG Tab.EC PO SCH (09:37)
[2023-01-11] MEDS: Magnesium Oxide 400 MG Tab PO SCH (11:54)
[2023-01-11] MEDS: DULoxetine 30 MG Cap PO SCH (20:06)
[2023-01-11] MEDS: Donepezil 10 MG Tab PO SCH (20:06)
[2023-01-11] MEDS: Gabapentin 300 MG Cap PO SCH (20:07)
[2023-01-11] MEDS: Mirtazapine 15 MG Tab PO SCH (20:09)
[2023-01-12] MEDS: Tamsulosin 0.4 MG Cap.ER PO SCH (08:30)
[2023-01-12] MEDS: metFORMIN 500 MG Tab.ER PO SCH (08:30)
[2023-01-12] MEDS: Cholecalciferol (Vitamin D3) 25 MCG Tab PO SCH (08:31)
[2023-01-12] MEDS: Aspirin 81 MG Tab.EC PO SCH (08:31)
[2023-01-12] MEDS: Cyanocobalamin (Vitamin B12) 1,000 MCG Tab PO SCH (08:31)
[2023-01-12 12:05] VITALS: BP 112/70; PULSE 78
== END 2023-01-12 11:25 | disposition home or self-care (01) | DRG 948 ==
LOC: LL.MS 17:27 → LL.SWG 01-10 11:18
PROVIDERS: ADMIT Emergency Medicine; ATTEND Emergency Medicine
DX: R53.81 Other malaise (principal); E86.0 Dehydration; N28.9 Disorder of kidney and ureter, unspecified; R79.89 Other specified abnormal findings of blood chemistry; R73.9 Hyperglycemia, unspecified
CPT/HCPCS: 36415; 80048; 82947; 83036; 83735; 85025; 94760; 94761; 97110-GO; 97110-GP; 97162-GP; 97530-GO; 97530-GP; 97535-GO; A9270-GY

== ENCOUNTER 2023-05-18 19:22 | Emergency (ER) | payer MEDICARE, OTHER ==
[2023-05-18 19:29] VITALS: BP 150/80; PULSE 98
[2023-05-18] MEDS ORDERED: Acetaminophen 325 MG Tab PO ONE (19:36)
[2023-05-18 20:05] LABS: BASOPHILS ABSOLUTE AUTO 0.03 K/uL (0.00-0.20); BASOPHILS PERCENT AUTO 0.5 % (0.0-2.0); EOSINOPHILS ABSOLUTE AUTO 0.25 K/uL (0.00-0.50); EOSINOPHILS PERCENT AUTO 4.4 % (0.0-5.0); HEMATOCRIT 38.9 % (39.0-49.0); HEMOGLOBIN 12.5 g/dL (13.1-16.8); LYMPHOCYTES ABSOLUTE AUTO 0.61 K/uL (0.50-3.50); LYMPHOCYTES PERCENT AUTO 10.6 % (10.0-50.0); MEAN CORPUSCULAR HEMOGLOBIN 26.7 pg (28.2-33.3); MEAN CORPUSCULAR HGB CONC 32.1 g/dL (31.7-36.0); MEAN CORPUSCULAR VOLUME 82.9 fL (84.0-98.0); NEUTROPHILS ABSOLUTE AUTO 4.04 K/uL (1.40-7.00); NEUTROPHILS PERCENT AUTO 70.5 % (45.0-80.0); PLATELET COUNT,PLT 191 K/uL (150-350); RED BLOOD CELL COUNT 4.69 M/uL (4.33-5.41); RED CELL DISTRIBUTION WIDTH 15.5 % (11.2-14.1); WHITE BLOOD CELL COUNT,WBC 5.7 K/uL (4.0-10.2)
[2023-05-18 20:25] LABS: ALANINE AMINOTRANSFERASE,ALT 26 U/L (12-78); ALBUMIN 3.9 g/dL (3.4-5.0); ALKALINE PHOSPHATASE 103 IU/L (46-116); ANION GAP 8.7 meq/L (7-15); ASPARTATE AMNIOTRANSFERASE,AST 21 U/L (15-37); BILIRUBIN TOTAL 0.5 mg/dL (0.2-1.0); BLOOD UREA NITROGEN,BUN 16 mg/dL (7-18); CALCIUM 9.3 mg/dL (8.5-10.1); CARBON DIOXIDE,CO2 29.3 mmol/L (21.0-32.0); CHLORIDE,CL 99 mmol/L (98-107); GLUCOSE RANDOM 154 mg/dL (70-99); POTASSIUM,K 3.9 mmol/L (3.5-5.1); PROTEIN TOTAL,TP 7.5 g/dL (6.4-8.2); SODIUM,NA 137 mmol/L (136-145)
[2023-05-18 20:26] LABS: INR 1.1; PROTHROMBIN TIME 10.7 SEC (9.0-11.1)
[2023-05-18 20:36] LABS: ESTIMATED GFR 68 mL/min (>=60)
[2023-05-18 20:47] LABS: CORONAVIRUS COVID-19 NAA NEGATIVE (NEGATIVE); INFLUENZA A NAA NEGATIVE (NEGATIVE); INFLUENZA B NAA NEGATIVE (NEGATIVE); RESPIRATORY SYNCYTIAL VIR NAA NEGATIVE (NEGATIVE)
[2023-05-18 21:45] LABS: APPEARANCE,URINE SLIGHTLY CLOUDY; BILIRUBIN,URINE NEGATIVE (NEGATIVE); COLOR,URINE YELLOW; GLUCOSE,URINE NEGATIVE (NEGATIVE); KETONES,URINE TRACE mg/dL (NEGATIVE); LEUKOCYTE ESTERASE,URINE NEGATIVE (NEGATIVE); NITRITE,URINE NEGATIVE (NEGATIVE); OCCULT BLOOD,URINE TRACE-LYSED (NEGATIVE); PH,URINE 5.5 (5.0-9.0); PROTEIN,URINE 100 mg/dL (NEGATIVE); UROBILINOGEN,URINE 0.2 E.U./dL (0.2-1.0)
[2023-05-18 21:46] LABS: BACTERIA,URINE NOT SEEN /HPF (NONE TO FEW); EPITHELIAL CELLS,URINE MODERATE /LPF; MUCUS,URINE FEW /LPF (NEGATIVE); WBC,URINE 0-5 /HPF
[2023-05-18] MEDS ORDERED: Doxycycline Monohydrate 100 MG Cap PO ONE (22:12)
[2023-05-18 22:26] LABS: LACTIC ACID 4.8 mmol/L (0.4-2.0)
== END 2023-05-18 22:50 ==
LOC: LL.ED 19:22
DX: R50.9 Fever, unspecified (principal); E78.00 Pure hypercholesterolemia, unspecified; I10 Essential (primary) hypertension; E11.9 Type 2 diabetes mellitus without complications; Z87.891 Personal history of nicotine dependence; Z79.82 Long term (current) use of aspirin; Z79.899 Other long term (current) drug therapy; Z79.84 Long term (current) use of oral hypoglycemic drugs; Z20.822 Contact with and (suspected) exposure to COVID-19
CPT/HCPCS: 0241U; 36415; 51701; 71046; 80053; 81001; 83605; 85025; 85610; 99284; A9270; 99283

== ENCOUNTER 2024-03-14 18:45 | Emergency (ER) | payer MEDICARE, OTHER ==
[2024-03-14 19:32] LABS: BASOPHILS ABSOLUTE AUTO 0.05 K/uL (0.00-0.20); BASOPHILS PERCENT AUTO 0.5 % (0.0-2.0); EOSINOPHILS ABSOLUTE AUTO 0.42 K/uL (0.00-0.50); EOSINOPHILS PERCENT AUTO 4.4 % (0.0-5.0); HEMATOCRIT 43.8 % (39.0-49.0); HEMOGLOBIN 14.1 g/dL (13.1-16.8); LYMPHOCYTES ABSOLUTE AUTO 0.71 K/uL (0.50-3.50); LYMPHOCYTES PERCENT AUTO 7.4 % (10.0-50.0); MEAN CORPUSCULAR HGB CONC 32.2 g/dL (31.7-36.0); MEAN CORPUSCULAR VOLUME 90.1 fL (84.0-98.0); MONOCYTES ABSOLUTE AUTO 0.97 K/uL (0.00-1.00); MONOCYTES PERCENT AUTO 10.1 % (2.0-14.0); NEUTROPHILS ABSOLUTE AUTO 7.41 K/uL (1.40-7.00); NEUTROPHILS PERCENT AUTO 77.6 % (45.0-80.0); PLATELET COUNT,PLT 187 K/uL (150-350); RED BLOOD CELL COUNT 4.86 M/uL (4.33-5.41); WHITE BLOOD CELL COUNT,WBC 9.6 K/uL (4.0-10.2)
[2024-03-14 19:42] LABS: ALANINE AMINOTRANSFERASE,ALT 26 U/L (12-78); ALBUMIN 3.7 g/dL (3.4-5.0); ALKALINE PHOSPHATASE 112 IU/L (46-116); ASPARTATE AMNIOTRANSFERASE,AST 29 U/L (15-37); BILIRUBIN TOTAL 0.9 mg/dL (0.2-1.0); BLOOD UREA NITROGEN,BUN 24 mg/dL (7-18); CHLORIDE,CL 100 mmol/L (98-107); CREATININE 1.61 mg/dL (0.51-1.17); GLUCOSE RANDOM 347 mg/dL (70-99); MAGNESIUM 2.4 mg/dL (1.8-2.4); POTASSIUM,K 4.9 mmol/L (3.5-5.1); PROTEIN TOTAL,TP 7.6 g/dL (6.4-8.2); SODIUM,NA 138 mmol/L (136-145)
[2024-03-14 19:43] LABS: ESTIMATED GFR 43 mL/min (>=60)
[2024-03-14 19:47] LABS: APPEARANCE,URINE SLIGHTLY CLOUDY; BILIRUBIN,URINE NEGATIVE (NEGATIVE); COLOR,URINE YELLOW; GLUCOSE,URINE >=1000 mg/dL (NEGATIVE); KETONES,URINE NEGATIVE (NEGATIVE); LEUKOCYTE ESTERASE,URINE SMALL (NEGATIVE); NITRITE,URINE NEGATIVE (NEGATIVE); OCCULT BLOOD,URINE SMALL (NEGATIVE); PROTEIN,URINE NEGATIVE (NEGATIVE); UROBILINOGEN,URINE 0.2 E.U./dL (0.2-1.0)
[2024-03-14 19:54] LABS: BACTERIA,URINE MODERATE /HPF (NONE TO FEW); EPITHELIAL CELLS,URINE FEW /LPF; MUCUS,URINE NOT SEEN /LPF (NEGATIVE); RBC,URINE 0-5 /HPF; WBC,URINE 30-40 /HPF
[2024-03-14 19:58] LABS: CORONAVIRUS COVID-19 NAA NEGATIVE (NEGATIVE); INFLUENZA A NAA NEGATIVE (NEGATIVE); INFLUENZA B NAA NEGATIVE (NEGATIVE); RESPIRATORY SYNCYTIAL VIR NAA NEGATIVE (NEGATIVE)
[2024-03-14] MEDS ORDERED: Sodium Chloride 0.9% 10 ML Syringe FLUSH PRN (20:09)
[2024-03-14] MEDS: Sodium Chloride 0.9% 1,000 ML IV ONE ×2 (20:09→23:19)
[2024-03-14] MEDS: Acetaminophen 325 MG Tab PO ONE (20:26)
[2024-03-14] MEDS: Piperacillin/Tazobactam 4.5 GM in Sodium Chloride 0.9% 100 ML IV ONE (20:28)
[2024-03-14] MEDS: Iopamidol 612 MG/ML 100 ML Bottle IVPUSH ONE (21:21)
[2024-03-14 23:43] VITALS: BP 117/66; PULSE 90
== END 2024-03-14 23:20 ==
LOC: LL.ED 18:45
DX: N39.0 Urinary tract infection, site not specified (principal); I10 Essential (primary) hypertension; E78.00 Pure hypercholesterolemia, unspecified; K21.9 Gastro-esophageal reflux disease without esophagitis; E11.9 Type 2 diabetes mellitus without complications; Z79.899 Other long term (current) drug therapy; Z79.82 Long term (current) use of aspirin; Z88.5 Allergy status to narcotic agent; Z88.6 Allergy status to analgesic agent
CPT/HCPCS: 0241U; 36415; 51702; 71045; 74177; 80053; 81001; 82947; 83605; 83735; 85025; 87040; 87086; 87088; 94761; 96361; 96365; 99284; 99285-25; A9270-GY; J2543; J3490; J7030; Q9967